=== PATIENT | male | born 1960 | race Asian ===

== ENCOUNTER 2016-11-16 16:27 | Inpatient (IN) | payer MEDICAID ==
[~2016-11-16] VITALS: Ht 175.3 cm; Wt 49.3 kg
[~2016-11-16 16:27] MED LIST: BENZ1TAB PO; RISP1TAB2 PO; SIMV20TA PO
[2016-11-16 16:45] VITALS: BP 137/84; PULSE 128; RESP 15; TEMP 101; O2SAT 100
[2016-11-16] MEDS ORDERED: SODIUM CHLOR 0.9% 1000 ML INJ 100 ML IV ONE (16:53)
[2016-11-16] MEDS ORDERED: SODIUM CHLOR 0.9% 1000 ML INJ 1,000 ML IV ONE ×2 (16:53)
[2016-11-16 17:00] VITALS: BP 137/85; PULSE 118; RESP 16; TEMP 98.7; O2SAT 100
[2016-11-16] MEDS ORDERED: VANCOMYCIN INJ 1,000 MG in SODIUM CHLOR 0.9% 250 ML INJ 250 ML IV ONE (17:00)
[2016-11-16] MEDS ORDERED: CEFEPIME INJ 2,000 MG in SODIUM CHLORIDE 0.9% INJ 100 ML IV ONE (17:00)
--- NOTE | 2016-11-16 17:26 | RADRPT ---
EXAM DATE/TIME: 11/16/2016 16:55 [facility] COMPARISON: No previous studies available for comparison. INDICATIONS : Fever. MEDICAL HISTORY : None. SURGICAL HISTORY : None. ENCOUNTER: Initial ACUITY: 1 day PAIN SCORE: Non-responsive. LOCATION: Bilateral chest FINDINGS: A single view of the chest demonstrates the lungs to be symmetrically aerated without evidence of mas s, infiltrate or effusion. The cardiomediastinal contours are unremarkable. Osseous structures are intact. CONCLUSION: No acute disease. Darrell Melo MD FACR on November 16, 2016 at 17:24 Board Certified Radiologist. This report was verified electronically.
--- NOTE | 2016-11-16 17:27 | PD ---
HPI Chief Complaint: Altered Mental Status Time Seen by Provider: 16:52 Travel History International Travel<30 days: No Contact w/Intl Traveler<30days: No Traveled to known affect area: No History of Present Illness HPI This is a 56-year-old male with a history of schizophrenia who presents to the emergency room brought in by ambulance. He was found in his home after a well check. He is not responding. His psychiatric counselor was concerned she hadn' t heard from him in several days. Unclear when he was last normal. PFSH Past Medical History Bipolar Disorder: Yes Psychiatric: Yes (PARANOID SHIZOPHRENIA) Integumentary: Yes (PSORIASIS) Social History Alcohol Use: No Tobacco Use: Yes (<1PPD) Substance Use: No Allergies-Medications (Allergen,Severity, Reaction): Coded Allergies: No Known Allergies (Unverified , 11/16/16) Reported Meds & Prescriptions Reported Meds & Active Scripts Active Reported Risperidone 1 Mg Tab 1 Mg PO Q12HR Simvastatin 20 Mg Tab 20 Mg PO DAILY Review of Systems ROS Limitations: Poor Historian Physical Exam Narrative GENERAL: Ill-appearing, cachectic with temporal wasting SKIN: Psoriatic plaques over the bilateral lower extremities and upper extremities and chest with no obvious cellulitis or wound infection HEAD: Atraumatic. Normocephalic. EYES: Pupils equal and round. No injection or drainage. ENT: Moist mucous membranes NECK: Trachea midline. CARDIOVASCULAR: Tachycardia RESPIRATORY: Clear to auscultation. Breath sounds equal bilaterally. GASTROINTESTINAL: Abdomen soft, non-tender, nondistended. MUSCULOSKELETAL: No obvious deformities. NEUROLOGICAL: Volitional he closes his eyes when we attempt to open them. Is not responding to commands so difficult to assess strength PSYCHIATRIC: Appears to have a behavioral component to his poor responsiveness Data Data Last Documented VS Vital Signs Date Time Temp Pulse Resp B/P Pulse Ox O2 Delivery O2 Flow Rate FiO2 11/16/16 18:00 98.2 116 17 138/87 98 Nasal Cannula 2 Orders Electrocardiogram (11/16/16 16:53) Complete Blood Count With Diff (11/16/16 16:53) Comprehensive Metabolic Panel (11/16/16 16:53) Act Partial Throm Time (Ptt) (11/16/16 16:53) Lactic Acid Sepsis Protocol (11/16/16 16:53) Phosphorus (Po4) (11/16/16 16:53) Troponin I (11/16/16 16:53) Urinalysis - C+S If Indicated (11/16/16 16:53) Blood Culture (11/16/16 16:53) Chest, Single Ap (11/16/16 16:53) Blood Glucose (11/16/16 16:53) Ecg Monitoring (11/16/16 16:53) Iv Access Insert/Monitor (11/16/16 16:53) Oximetry (11/16/16 16:53) Oxygen Administration (11/16/16 16:53) Urinary Catheter Insert/Apply (11/16/16 16:53) Ct Brain W/O Iv Contrast(Rout) (11/16/16 16:53) Sodium Chlor 0.9% 1000 Ml Inj (Ns 1000 M (11/16/16 16:53) Sodium Chlor 0.9% 1000 Ml Inj (Ns 1000 M (11/16/16 16:53) Sodium Chlor 0.9% 1000 Ml Inj (Ns 1000 M (11/16/16 16:53) Creatine Kinase (Cpk) (11/16/16 16:53) Drug Screen, Random Urine (11/16/16 16:53) Alcohol (Ethanol) (11/16/16 16:53) Salicylates (Aspirin) (11/16/16 16:53) Tylenol (Acetaminophen) (11/16/16 16:53) Vancomycin Inj (Vancomycin Inj) (11/16/16 17:00) Cefepime Inj (Maxipime Inj) (11/16/16 17:00) Labs Laboratory Tests Test 11/16/16 17:00 White Blood Count 8.5 TH/MM3 Red Blood Count 3.88 MIL/MM3 Hemoglobin 14.0 GM/DL Hematocrit 40.3 % Mean Corpuscular Volume 103.9 FL Mean Corpuscular Hemoglobin 36.1 PG Mean Corpuscular Hemoglobin 34.7 % Concent Red Cell Distribution Width 14.8 % Platelet Count 216 TH/MM3 Mean Platelet Volume 7.2 FL Neutrophils (%) (Auto) 77.4 % Lymphocytes (%) (Auto) 15.7 % Monocytes (%) (Auto) 5.6 % Eosinophils (%) (Auto) 0.7 % Basophils (%) (Auto) 0.6 % Neutrophils # (Auto) 6.6 TH/MM3 Lymphocytes # (Auto) 1.3 TH/MM3 Monocytes # (Auto) 0.5 TH/MM3 Eosinophils # (Auto) 0.1 TH/MM3 Basophils # (Auto) 0.1 TH/MM3 CBC Comment DIFF FINAL Differential Comment Activated Partial 30.8 SEC Thromboplast Time Urine Color YELLOW Urine Turbidity CLEAR Urine pH 5.5 Urine Specific [place] 1.006 Urine Protein NEG mg/dL Urine Glucose (UA) NEG mg/dL Urine Ketones 10 mg/dL Urine Occult Blood NEG Urine Nitrite NEG Urine Bilirubin NEG Urine Urobilinogen LESS THAN 2.0 MG/DL Urine Leukocyte Esterase NEG Urine WBC LESS THAN 1 /hpf Urine Amorphous Sediment RARE Urine Mucus FEW /lpf Microscopic Urinalysis Comment CATH-CULT NOT IND Sodium Level 132 MEQ/L Potassium Level 3.1 MEQ/L Chloride Level 99 MEQ/L Carbon Dioxide Level 21.2 MEQ/L Anion Gap 12 MEQ/L Blood Urea Nitrogen 4 MG/DL Creatinine 0.85 MG/DL Estimat Glomerular Filtration 93 ML/MIN Rate Random Glucose 133 MG/DL Lactic Acid Level 2.2 mmol/L Calcium Level 7.6 MG/DL Phosphorus Level 2.1 MG/DL Total Bilirubin 0.3 MG/DL Aspartate Amino Transf 14 U/L (AST/SGOT) Alanine Aminotransferase 13 U/L (ALT/SGPT) Alkaline Phosphatase 90 U/L Total Creatine Kinase 72 U/L Troponin I LESS THAN 0.02 NG/ML Total Protein 6.6 GM/DL Albumin 3.5 GM/DL Salicylates Level 7.7 MG/DL Urine Opiates Screen NEG Acetaminophen Level LESS THAN 2.0 MCG/ML Urine Barbiturates Screen NEG Urine Amphetamines Screen NEG Urine Benzodiazepines Screen NEG Urine Cocaine Screen NEG Urine Cannabinoids Screen NEG Ethyl Alcohol Level LESS THAN 3 MG/DL [facility] Medical Decision Making Medical Screen Exam Complete: Yes Emergency Medical Condition: Yes Interpretation(s) Afebrile, tachycardic, normotensive No leukocytosis Macrocytosis Hypokalemia Lactic acid is 2.2 Troponin is normal Drug screen is negative Salicylates are 7.7 Acetaminophen is less than 2 Alcohol is negative Last 24 hours Impressions Chest X-Ray 11/16/16 1241 Signed Impressions: Service Date/Time: Wednesday, November 16, 2016 16:55 - CONCLUSION: No acute disease. Darrell Melo MD FACR Differential Diagnosis Pneumonia, urinary tract infection, cellulitis, meningitis, encephalitis, schizophrenia Narrative Course This is a 56-year-old male who presents to the emergency department with altered mental status. He was found at home unresponsive by EMS. He appears to be volitionally closing his eyes initially and will follow any commands. He had a temperature of 101. Labs were obtained and he was placed on a monitor. He was given 2 L of IV fluid and covered empirically for sepsis given his altered mental status. He improved significantly during his ED stay and was able to wake up and answer questions and said he feels cold. I still think the patient requires admission for continued IV hydration as he appears quite dry and he may require further evaluation for his altered mental status and he doesn 't continue to improve. I would obtain a psychiatric consultation. I don't suspect meningitis or encephalitis given his mental status appears to be clearing. Diagnosis Primary Impression: Sepsis Qualified Code: A41.9 - Sepsis, due to unspecified organism Admitting Information Admitting Physician Requests: Admit Stefani Chen MD Nov 16, 2016 17:27
[2016-11-16 17:42] VITALS: BP 149/82; PULSE 104; RESP 15; TEMP 98.2; O2SAT 99
[2016-11-16 17:46] LABS: AUTOMATED NEUTROPHIL # 6.6 TH/MM3 (1.8-7.7); BASOPHIL # 0.1 TH/MM3 (0-0.2); BASOPHIL % 0.6 % (0.0-2.0); EOSINOPHIL # 0.1 TH/MM3 (0-0.4); EOSINOPHIL % 0.7 % (0.0-4.0); HEMATOCRIT 40.3 % (39.0-51.0); HEMO FLAGS DIFF FINAL; LYMPH % 15.7 % (9.0-44.0); LYMPHOCYTE # 1.3 TH/MM3 (1.0-4.8); MEAN CELL VOLUME 103.9 FL (80.0-100.0); MEAN CORPUSCULAR HEMOGLOBIN 36.1 PG (27.0-34.0); MEAN CORPUSCULAR HGB CONC 34.7 % (32.0-36.0); MONO % 5.6 % (0.0-8.0); NEUT % 77.4 % (16.0-70.0); PLATELET COUNT 216 TH/MM3 (150-450); RED BLOOD COUNT 3.88 MIL/MM3 (4.50-5.90); RED CELL DISTRIBUTION WIDTH 14.8 % (11.6-17.2); WHITE BLOOD COUNT 8.5 TH/MM3 (4.0-11.0)
[2016-11-16 17:55] LABS: APTT (PATIENT) 30.8 SEC (24.3-30.1)
[2016-11-16 18:00] VITALS: BP 138/87; PULSE 116; RESP 17; TEMP 98.2; O2SAT 98
[2016-11-16 18:05] LABS: AMPHETAMINE, URINE NEG (NEG); ANION GAP 12 MEQ/L (5-15); AST (GOT) 14 U/L (15-37); BARBITURATES, URINE NEG (NEG); BICARBONATE 21.2 MEQ/L (21.0-32.0); BLOOD UREA NITROGEN 4 MG/DL (7-18); CHLORIDE 99 MEQ/L (98-107); COCAINE, URINE NEG (NEG); GLOMERULAR FILTRATION RATE 93 ML/MIN (>89); POTASSIUM 3.1 MEQ/L (3.5-5.1); SODIUM (NA) 132 MEQ/L (136-145)
[2016-11-16 18:07] LABS: BLOOD, URINE NEG (NEG); GLUCOSE,URINE NEG (NEG); KETONE, URINE 10 mg/dL (NEG); MUCUS URINE FEW /lpf (OCC); NITRITE,URINE NEG (NEG); PH, URINE 5.5 (5.0-8.5); URINE COLOR YELLOW (YELLW/STRAW)
[2016-11-16 18:09] LABS: ACETAMINOPHEN LESS THAN 2.0 MCG/ML (10.0-30.0); ALKALINE PHOSPHATASE 90 U/L (45-117); ALT (GPT) 13 U/L (12-78); TOTAL BILIRUBIN ADULT 0.3 MG/DL (0.2-1.0)
[2016-11-16 18:16] LABS: COMMENT (UR) CATH-CULT NOT IND; CULTURE IF INDICATED CATH CULTURE NOT IND
[2016-11-16 18:28] LABS: CREATINE KINASE 72 U/L (39-308)
[2016-11-16 18:30] VITALS: BP 125/76; PULSE 112; RESP 17; O2SAT 99
--- NOTE | 2016-11-16 18:50 | RADRPT ---
EXAM DATE/TIME: 11/16/2016 18:27 [facility] COMPARISON: No previous studies available for comparison. INDICATIONS : Altered mental status. RADIATION DOSE: 26.68 CTDIvol (mGy) MEDICAL HISTORY : Schizophrenia SURGICAL HISTORY : None. ENCOUNTER: Initial ACUITY: 1 day PAIN SCALE: Non-responsive LOCATION: cranial TECHNIQUE: Multiple contiguous axial images were obtained of the head. Using automated exposure control and adj ustment of the mA and/or kV according to patient size, radiation dose was kept as low as reasonably a chievable to obtain optimal diagnostic quality images. DICOM format image data is available electro nically for review and comparison. FINDINGS: CEREBRUM: The ventricles are normal for age. No evidence of midline shift, mass lesion, hemorrhage or acute in farction. No extra-axial fluid collections are seen. POSTERIOR FOSSA: The cerebellum and brainstem are intact. The 4th ventricle is midline. The cerebellopontine angle i s unremarkable. EXTRACRANIAL: The visualized portion of the orbits is intact. SKULL: The calvaria is intact. No evidence of skull fracture. CONCLUSION: Negative noncontrast CT brain. Dawit Lopez MD on November 16, 2016 at 18:47 Board Certified Radiologist. This report was verified electronically.
[2016-11-16 19:25] LABS: LACTIC ACID GHOST NOT REPORTABLE
[2016-11-16] MEDS ORDERED: LACTULOSE SYRUP 20 GM/30 ML CUP PO PRN (19:30)
[2016-11-16] MEDS ORDERED: BISACODYL 10 MG SUPP RECTAL PRN (19:30)
[2016-11-16] MEDS ORDERED: MAGNESIUM HYDROXIDE SUSP 30 ML CUP PO PRN (19:30)
[2016-11-16] MEDS ORDERED: NALOXONE HCL 0.4 MG/ML AMP IV PRN (19:30)
[2016-11-16] MEDS ORDERED: SENNOSIDES 8.6 MG TAB PO PRN (19:30)
[2016-11-16] MEDS ORDERED: ONDANSETRON HCL 4 MG/2 ML VIAL IVP PRN (19:30)
[2016-11-16] MEDS ORDERED: SODIUM CHLORIDE 0.9% FLUSH 10 ML FLUSH IV FLUSH PRN (19:30)
--- NOTE | 2016-11-16 20:14 | HHI.HP ---
HPI Service [facility] Primary Care Physician No Primary Care Physician Admission Diagnosis sepsis Diagnoses: (1) Encephalopathy Diagnosis: Principal (2) Sepsis Diagnosis: Principal (3) Hypokalemia Diagnosis: Principal (4) Schizophrenia Diagnosis: Principal (5) Tobacco abuse Diagnosis: Principal Travel History International Travel<30 Days: No Contact w/Intl Traveler <30 Da: No Traveled to Known Affected Are: No History of Present Illness This is a 56-year-old male with PMH of Paranoid Schizophrenia, Psoriasis and Tobacco Abuse was sent to the ER by EMS secondary to AMS. Per report, Psychiatric Counselor has not heard from patient for several days and became concerned, patient found at home essentially unresponsive. Unable to obtain any history from patient. On arrival, BP 137/84, HR 128, O2 sat 100% on RA, Temp 101.0. WBC normal however elevated neutrophil count. K+ 3.1. Lactic Acid 2.2. Troponin negative. UA negative. Urine Drug Screen negative. Alcohol negative. CT Head negative. CXR with no acute findings. S/p Blood Cultures, Vanc/Cefepime in ER. Review of Systems Except as stated in HPI: all other systems reviewed are Neg ROS: Unable to obtain secondary to AMS. Past Family Social History Past Medical History PMH: Paranoid Schizophrenia, Psoriasis and Tobacco Abuse Past Surgical History PAST SURGICAL HISTORY: None Allergies: Coded Allergies: No Known Allergies (Unverified , 11/16/16) Family History PAST FAMILY HISTORY: Reviewed. No h/o DM or CAD Social History PAST SOCIAL HISTORY: Unknown history of alcohol abuse. Positive for tobacco. Negative for drugs per previous records. Physical Exam Vital Signs Vital Signs Date Time Temp Pulse Resp B/P Pulse Ox O2 Delivery O2 Flow Rate FiO2 11/16/16 18:30 112 17 125/76 99 Room Air 11/16/16 18:00 98.2 116 17 138/87 98 Nasal Cannula 2 11/16/16 17:42 98.2 104 15 149/82 99 Nasal Cannula 2 11/16/16 17:00 98.7 118 16 137/85 100 Nasal Cannula 2 11/16/16 16:45 Nasal Cannula 2 11/16/16 16:45 100 Room Air 11/16/16 16:45 101.0 128 15 137/84 100 11/16/16 16:45 Room Air Physical Exam PE: GENERAL: Middle-aged male in no acute distress. Nonverbal. Does not follow commands HEENT: PERRLA, EOMI. No scleral icterus or conjunctival pallor. No lid lag or facial droop. CARDIOVASCULAR: Regular rate and rhythm. No obvious murmurs to auscultation. No chest tenderness to palpation. RESPIRATORY: No obvious rhonchi or wheezing. Clear to auscultation. Breath sounds equal bilaterally. GASTROINTESTINAL: Abdomen soft, non-tender, nondistended. BS normal. MUSCULOSKELETAL: Extremities without clubbing, cyanosis, or edema. No obvious deformities. +psoriasis NEUROLOGICAL: Nonverbal, not following commands, ?behavioral. No focal neurologic deficits. Moving both upper and lower extremities spontaneously. Laboratory Laboratory Tests Test 11/16/16 17:00 White Blood Count 8.5 Red Blood Count 3.88 Hemoglobin 14.0 Hematocrit 40.3 Mean Corpuscular Volume 103.9 Mean Corpuscular Hemoglobin 36.1 Mean Corpuscular Hemoglobin 34.7 Concent Red Cell Distribution Width 14.8 Platelet Count 216 Mean Platelet Volume 7.2 Neutrophils (%) (Auto) 77.4 Lymphocytes (%) (Auto) 15.7 Monocytes (%) (Auto) 5.6 Eosinophils (%) (Auto) 0.7 Basophils (%) (Auto) 0.6 Neutrophils # (Auto) 6.6 Lymphocytes # (Auto) 1.3 Monocytes # (Auto) 0.5 Eosinophils # (Auto) 0.1 Basophils # (Auto) 0.1 CBC Comment DIFF FINAL Differential Comment Activated Partial 30.8 Thromboplast Time Urine Color YELLOW Urine Turbidity CLEAR Urine pH 5.5 Urine Specific [place] 1.006 Urine Protein NEG Urine Glucose (UA) NEG Urine Ketones 10 Urine Occult Blood NEG Urine Nitrite NEG Urine Bilirubin NEG Urine Urobilinogen LESS THAN 2.0 Urine Leukocyte Esterase NEG Urine WBC LESS THAN 1 Urine Amorphous Sediment RARE Urine Mucus FEW Microscopic Urinalysis Comment CATH-CULT NOT IND Sodium Level 132 Potassium Level 3.1 Chloride Level 99 Carbon Dioxide Level 21.2 Anion Gap 12 Blood Urea Nitrogen 4 Creatinine 0.85 Estimat Glomerular Filtration 93 Rate Random Glucose 133 Lactic Acid Level 2.2 Calcium Level 7.6 Phosphorus Level 2.1 Total Bilirubin 0.3 Aspartate Amino Transf 14 (AST/SGOT) Alanine Aminotransferase 13 (ALT/SGPT) Alkaline Phosphatase 90 Total Creatine Kinase 72 Troponin I LESS THAN 0.02 Total Protein 6.6 Albumin 3.5 Salicylates Level 7.7 Urine Opiates Screen NEG Acetaminophen Level LESS THAN 2.0 Urine Barbiturates Screen NEG Urine Amphetamines Screen NEG Urine Benzodiazepines Screen NEG Urine Cocaine Screen NEG Urine Cannabinoids Screen NEG Ethyl Alcohol Level LESS THAN 3 Date/Time Procedure Status Source Growth 11/16/16 17:00 Aerobic Blood Culture Received Blood Peripheral Pending 11/16/16 17:00 Anaerobic Blood Culture Received Blood Peripheral Pending Result Diagram: 11/16/16 1700 11/16/16 1700 Assessment and Plan Problem List: (1) Encephalopathy ICD Code: G93.40 Status: Acute (2) Sepsis ICD Code: A41.9 Status: Acute (3) Hypokalemia ICD Code: E87.6 Status: Acute (4) Schizophrenia ICD Code: F20.9 Status: Acute (5) Tobacco abuse ICD Code: Z72.0 Status: Acute Assessment and Plan A/P: 1. Encephalopathy: Unclear etiology-sepsis, psychiatric component. No h/o Alcohol Abuse per records, however MCV elevated, alcohol negative ?withdrawal. Start on CIWA empirically. CT Head w/ no acute findings, images reviewed by me. Neuro checks q4h. 2. Sepsis: Temp 101.0, HR 128, Lactic Acid 2.2, repeat 1.5. Source-unclear. CXR w/ no acute findings, images reviewed by me. U/a negative. S/p Blood Cultures, Vanc/Cefepime. Follow up cultures, continue IV Abx, IVF for hydration. +psoriatic plaques but no evidence of infection. 3. Hypokalemia: K+ 3.1, will recheck and replace as needed. 4. Schizophrenia: home medications unknown, previously on Risperidone 1mg q12h. Consult Psych as needed. 5. Tobacco Abuse: Ativan/NicoDerm prn if needed. 6. Social work for d/c planning as needed. 7. Case discussed w/ ER physician at length. Physician Certification 2 Midnight Certification Type: Admission for Inpatient Services Order for Inpatient Services The services are ordered in accordance with Medicare regulations or non- Medicare payer requirements, as applicable. In the case of services not specified as inpatient-only, they are appropriately provided as inpatient services in accordance with the 2-midnight benchmark. Estimated LOS (days): 2 days is the estimated time the patient will need to remain in the hospital, assuming treatment plan goals are met and no additional complications. Post-Hospital Plan: Not yet determined Problem Qualifiers (1) Sepsis: Qualified Code: A41.9 - Sepsis, due to unspecified organism Lisandra Rodriguez MD Nov 16, 2016 20:14
[2016-11-16] MEDS ORDERED: FLUMAZENIL 0.5 MG/5 ML VIAL IV PUSH PRN (20:15)
[2016-11-16] MEDS ORDERED: LORazepam 2 MG TAB PO PRN (20:15)
[2016-11-16] MEDS ORDERED: LORazepam 2 MG/ML VIAL IV PUSH PRN ×4 (20:15)
[2016-11-16] MEDS ORDERED: Vancomycin Consult Pharmacy 1 EA OTHER SCH (20:15)
[2016-11-16] MEDS ORDERED: HALOPERIDOL LACTATE 5 MG/ML AMP IM PRN (20:15)
[2016-11-16] MEDS ORDERED: LORazepam 1 MG TAB PO PRN (20:15)
[2016-11-16] MEDS: SODIUM CHLOR 0.9% 1000 ML INJ 1,000 ML IV SCH (20:23)
[2016-11-16] MEDS: SODIUM CHLORIDE 0.9% FLUSH 10 ML FLUSH IV FLUSH SCH (20:23)
[2016-11-16] MEDS: DOCUSATE SODIUM 50 MG/SENNA 8.6 MG TAB PO SCH (21:00)
[2016-11-16 21:30] VITALS: BP 139/82; PULSE 113; RESP 17; TEMP 97.8; O2SAT 98
[2016-11-17] VITALS: BP 124/80; PULSE 100; RESP 17; TEMP 97.2; O2SAT 98
[2016-11-17] MEDS: SODIUM CHLOR 0.9% 1000 ML INJ 1,000 ML IV SCH ×2 (05:42→18:11)
[2016-11-17] MEDS: VANCOMYCIN 1,000 MG/NS 250 ML IV SCH ×4 (05:42→18:12)
[2016-11-17 06:18] LABS: AUTOMATED NEUTROPHIL # 5.4 TH/MM3 (1.8-7.7); BASOPHIL # 0.1 TH/MM3 (0-0.2); BASOPHIL % 0.7 % (0.0-2.0); EOSINOPHIL # 0.1 TH/MM3 (0-0.4); EOSINOPHIL % 1.6 % (0.0-4.0); HEMATOCRIT 39.4 % (39.0-51.0); HEMO FLAGS DIFF FINAL; LYMPHOCYTE # 1.7 TH/MM3 (1.0-4.8); MEAN CELL VOLUME 104.2 FL (80.0-100.0); MEAN CORPUSCULAR HEMOGLOBIN 36.8 PG (27.0-34.0); MEAN CORPUSCULAR HGB CONC 35.3 % (32.0-36.0); MONO % 6.8 % (0.0-8.0); NEUT % 68.9 % (16.0-70.0); PLATELET COUNT 227 TH/MM3 (150-450); RED BLOOD COUNT 3.78 MIL/MM3 (4.50-5.90); RED CELL DISTRIBUTION WIDTH 15.3 % (11.6-17.2); WHITE BLOOD COUNT 7.8 TH/MM3 (4.0-11.0)
[2016-11-17 07:16] LABS: BICARBONATE 21.1 MEQ/L (21.0-32.0); POTASSIUM 3.6 MEQ/L (3.5-5.1)
[2016-11-17 08:00] VITALS: BP 125/73; PULSE 105; RESP 17; TEMP 98.6; O2SAT 96
[2016-11-17] MEDS: FOLIC ACID 1 MG TAB PO SCH (09:00)
--- NOTE | 2016-11-17 09:26 | HHI.PR ---
Subjective Remarks This is a 56-year-old male with PMH of Paranoid Schizophrenia, Psoriasis and Tobacco Abuse was sent to the ER by EMS secondary to AMS. Per report, Psychiatric Counselor has not heard from patient for several days and became concerned, patient found at home essentially unresponsive. Unable to obtain any history from patient. On arrival, BP 137/84, HR 128, O2 sat 100% on RA, Temp 101.0. WBC normal however elevated neutrophil count. K+ 3.1. Lactic Acid 2.2. Troponin negative. UA negative. Urine Drug Screen negative. Alcohol negative. CT Head negative. CXR with no acute findings. S/p Blood Cultures, Vanc/Cefepime in ER. 8-4 A.m. labs Discussed with RN and patient Replace potassium Objective Vitals Vital Signs Date Time Temp Pulse Resp B/P Pulse Ox O2 Delivery O2 Flow Rate FiO2 11/17/16 08:00 98.6 105 17 125/73 96 11/17/16 00:00 97.2 100 17 124/80 98 11/16/16 21:30 97.8 113 17 139/82 98 11/16/16 18:30 112 17 125/76 99 Room Air 11/16/16 18:00 98.2 116 17 138/87 98 Nasal Cannula 2 11/16/16 17:42 98.2 104 15 149/82 99 Nasal Cannula 2 11/16/16 17:00 98.7 118 16 137/85 100 Nasal Cannula 2 11/16/16 16:45 Nasal Cannula 2 11/16/16 16:45 100 Room Air 11/16/16 16:45 101.0 128 15 137/84 100 11/16/16 16:45 Room Air I/O 11/16/16 11/16/16 11/16/16 11/17/16 11/17/16 11/17/16 07:00 15:00 23:00 07:00 15:00 23:00 Intake Total 240 ml 1160 ml Output Total 3700 ml 1300 ml Balance -3460 ml -140 ml Intake Oral 240 ml 240 ml IV Total 920 ml Output Urine Total 3700 ml 1300 ml # Voids 0 Result Diagram: 11/17/16 0527 11/17/16 0527 Other Results Last Impressions Head CT 11/16/16 1653 Signed Impressions: Service Date/Time: Wednesday, November 16, 2016 18:27 - CONCLUSION: Negative noncontrast CT brain. Dawit Lopez MD Chest X-Ray 11/16/161652 Signed Impressions: Service Date/Time: Wednesday, November 16, 2016 16:55 - CONCLUSION: No acute disease. Darrell Melo MD FACR Laboratory Tests Test 11/16/16 11/17/16 17:00 05:27 Red Blood Count 3.88 MIL/MM3 3.78 MIL/MM3 (4.50-5.90) (4.50-5.90) Mean Corpuscular Volume 103.9 FL 104.2 FL (80.0-100.0) (80.0-100.0) Mean Corpuscular Hemoglobin 36.1 PG 36.8 PG (27.0-34.0) (27.0-34.0) Neutrophils (%) (Auto) 77.4 % (16.0-70.0) Activated Partial 30.8 SEC Thromboplast Time (24.3-30.1) Urine Ketones 10 mg/dL (NEG) Urine Mucus FEW /lpf (OCC) Sodium Level 132 MEQ/L (136-145) Potassium Level 3.1 MEQ/L (3.5-5.1) Blood Urea Nitrogen 4 MG/DL (7-18) 4 MG/DL (7-18) Random Glucose 133 MG/DL 71 MG/DL (74-106) (74-106) Lactic Acid Level 2.2 mmol/L (0.4-2.0) Calcium Level 7.6 MG/DL 7.9 MG/DL (8.5-10.1) (8.5-10.1) Phosphorus Level 2.1 MG/DL (2.5-4.9) Aspartate Amino Transf 14 U/L (15-37) (AST/SGOT) Troponin I LESS THAN 0.02 NG/ML (0.02-0.05) Acetaminophen Level LESS THAN 2.0 MCG/ML (10.0-30.0) Chloride Level 112 MEQ/L (98-107) Imaging Last [address] 11/16/161652 Signed Impressions: Service Date/Time: Wednesday, November 16, 2016 18:27 - CONCLUSION: Negative noncontrast CT brain. Dawit Lopez MD Chest X-Ray 11/16/16 1366 Signed Impressions: Service Date/Time: Wednesday, November 16, 2016 16:55 - CONCLUSION: No acute disease. Darrell Melo MD FACR Objective Remarks GENERAL: Awake alert and oriented to person not place or location or situation SKIN: Warm and dry. Multiple areas of bruising on bilateral knees HEAD: Atraumatic. Normocephalic. EYES: Pupils equal and round. No scleral icterus. No injection or drainage. Extraocular muscles grossly intact ENT: No nasal bleeding or discharge. Mucous membranes pink and moist. Tongue is midline NECK: Trachea midline. No JVD. CARDIOVASCULAR: Regular rate and rhythm. S1-S2 no S3 or S4 no heave or thrill or rub or gallop. RESPIRATORY: No accessory muscle use. Clear to auscultation. Breath sounds equal bilaterally. No rhonchi wheezes or rales GASTROINTESTINAL: Abdomen soft, non-tender, nondistended. Hepatic and splenic margins not palpable. MUSCULOSKELETAL: Extremities without clubbing, cyanosis, or edema. No obvious deformities. Good pedal pulses bilaterally deep tendon reflexes 2/4 in upper extremity and lower extremity bilaterally NEUROLOGICAL: Awake and alert. No obvious cranial nerve deficits. Motor grossly within normal limits. Five out of 5 muscle strength in the arms and legs. Normal speech. PSYCHIATRIC: INAppropriate mood and affect; insight and judgment ABnormal. Medications and IVs Current Medications Medications (Trade) Dose Ordered Sig/Nato Route Start Time Stop Time Status Last Admin (NS 1000 ml Inj) 1,000 ml @ 100 mls/hr Q10H IV 11/16/16 20:00 11/17/16 05:42 (NS Flush) 2 ml UNSCH PRN IV FLUSH 11/16/16 19:30 (NS Flush) 2 ml BID IV FLUSH 11/16/16 21:00 11/16/16 20:23 (Zofran Inj) 4 mg Q6H PRN IVP 11/16/16 19:30 (Narcan Inj) 0.4 mg UNSCH PRN IV 11/16/16 19:30 (Li-Colace) 1 tab BID PO 11/16/16 21:00 (Milk Of Magnesia Liq) 30 ml Q12H PRN PO 11/16/16 19:30 (Senokot) 17.2 mg Q12H PRN PO 11/16/16 19:30 (Dulcolax Supp) 10 mg DAILY PRN RECTAL 11/16/16 19:30 Lactulose 30 ml 30 ml DAILY PRN PO 11/16/16 19:30 Pharmacy Profile Note 0 ml @ 0 mls/hr UNSCH OTHER 11/16/16 20:15 (Maxipime Inj/NS Inj) 100 ml @ 200 mls/hr Q12H IV 11/17/16 09:00 (Folate) 1 mg DAILY PO 11/17/16 09:00 11/22/16 08:59 (Vitamin B1) 100 mg DAILY PO 11/17/16 09:00 (Theragran M Tab) 1 tab DAILY PO 11/17/16 09:00 11/22/16 08:59 (Romazicon Inj) 0.2 mg Q1M PRN IV PUSH 11/16/16 20:15 (Ativan) 1 mg Q4H PRN PO 11/16/16 20:15 (Ativan Inj) 1 mg Q4H PRN IV PUSH 11/16/16 20:15 (Ativan) 2 mg Q2H PRN PO 11/16/16 20:15 (Ativan Inj) 2 mg Q2H PRN IV PUSH 11/16/16 20:15 (Ativan Inj) 2 mg Q1H PRN IV PUSH 11/16/16 20:15 (Ativan Inj) 2 mg Q15M PRN IV PUSH 11/16/16 20:15 Haloperidol Lactate 2 mg 2 mg Q15M PRN IM 11/16/16 20:15 (Vancomycin Inj/ NS 250 ml Inj) 250 ml @ 250 mls/hr Q12H IV 11/17/16 05:00 11/17/16 05:42 Miscellaneous Information SPECIFIC LAB TO BE DEMETRIO... ONCE ONCE .XX 11/18/16 16:45 11/18/16 16:46 Urinary Catheter: No Vascular Central Line Catheter: No A/P Problem List: (1) Encephalopathy ICD Code: G93.40 Status: Acute (2) Sepsis ICD Code: A41.9 Status: Acute (3) Hypokalemia ICD Code: E87.6 Status: Acute (4) Schizophrenia ICD Code: F20.9 Status: Acute (5) Tobacco abuse ICD Code: Z72.0 Status: Acute Assessment and Plan 1. Encephalopathy: Unclear etiology-sepsis, psychiatric component. No h/o Alcohol Abuse per records, however MCV elevated, alcohol negative ?withdrawal. Start on CIWA empirically. CT Head w/ no acute findings, images reviewed by me. Neuro checks q4h. 2. Sepsis: Temp 101.0, HR 128, Lactic Acid 2.2, repeat 1.5. Source-unclear. CXR w/ no acute findings, images reviewed by me. U/a negative. S/p Blood Cultures, Vanc/Cefepime. Follow up cultures, continue IV Abx, IVF for hydration. +psoriatic plaques but no evidence of infection. 3. Hypokalemia: K+ 3.1, will recheck and replace as needed. 4. Schizophrenia: home medications unknown, previously on Risperidone 1mg q12h. Consult Psych as needed. 5. Tobacco Abuse: Ativan/NicoDerm prn if needed. Discharge Planning Needs physical therapy and occupational therapy and case management consult DVT and GI prophylaxis Problem Qualifiers (1) Sepsis: Qualified Code: A41.9 - Sepsis, due to unspecified organism Darrell Park DO Nov 17, 2016 09:26
[2016-11-17] MEDS: NICOTINE 21 MG/24 HR PATCH T-DERMAL SCH (09:30)
[2016-11-17 11:07] LABS: HDL CHOLESTEROL 45.5 MG/DL (40.0-60.0)
[2016-11-17] MEDS: MULTIVITAMINS/MINERALS THERAPEUTIC TAB PO SCH (11:15)
[2016-11-17] MEDS: DOCUSATE SODIUM 50 MG/SENNA 8.6 MG TAB PO SCH ×2 (11:15→21:26)
[2016-11-17] MEDS: CEFEPIME INJ 1,000 MG in SODIUM CHLORIDE 0.9% INJ 100 ML IV SCH ×2 (11:16→21:26)
[2016-11-17] MEDS: THIAMINE HCL 100 MG TAB PO SCH (11:16)
[2016-11-17] MEDS: SODIUM CHLORIDE 0.9% FLUSH 10 ML FLUSH IV FLUSH SCH ×2 (11:17→21:26)
[2016-11-17] MEDS: ENOXAPARIN SODIUM 30 MG/0.3 ML SYRINGE SQ SCH (11:17)
[2016-11-17 12:00] VITALS: BP 119/79; PULSE 107; RESP 18; TEMP 98.8; O2SAT 97
--- NOTE | 2016-11-17 13:17 | EKG ---
Date Performed: 11/16/2016 Time Performed: 18:16:40 PTAGE: 56 years EKG: SINUS TACHYCARDIA ABNORMAL RHYTHM ECG PREVIOUS TRACING : 07/22/2011 09.10 Since previous tracing, no significant change noted DOCTOR: Kiet Nguyễn Interpretating Date/Time 11/17/2016 13:17:24
--- NOTE | 2016-11-17 13:51 | PD.PSY.CON ---
Provisional Diagnosis Admission Date Nov 16, 2016 at 19:07 [place] I. 1. Schizophrenia, undifferentiated type, concern for acute exacerbation [place] II. Deferred History of Present Illness Service Psychiatry Consult Requested By Dr. Park Reason for Consult Altered level of consciousness Primary Care Physician No Primary Care Physician HPI Mr. Tomlinson is a 56-year-old [facility] male with a history of schizophrenia who was brought into the ED by EMS after he was found unresponsive at home. Patient was somewhat febrile and tachycardic on initial presentation here. Workup so far has been negative except for mildly elevated lactic acid, now within normal limits. Reviewing the electronic medical record I see no prior psychiatric contact within our system. Patient seen and examined. Chart reviewed. Case discussed with nursing staff reports that the patient has been quiet and somewhat lethargic. No behavioral problem. On my examination today, the patient presents as fairly negativistic. He seems to have prominent negative symptoms including affective flattening and apathy. He denies any suicidal or homicidal ideation. Denies any audiovisual hallucinations. Denies low mood or elevated mood, nor can I elicit any depressive or hypomanic/manic symptoms. He says that he sleeps fairly well and his appetite is fair. Remainder of the psychiatric ROS is negative. Past psychiatric history: The patient has a history of schizophrenia. He follows at [facility] with Chemo oDnohue. He also has a lead case manager there named Iraida. He denies any history of psychiatric admissions or suicide attempts. He reports adherence with psychotropic medications. I did place a call over to [facility]. The patient apparently follows at their [place] office. He is prescribed Risperdal 3 mg twice daily and Cogentin 1 mg twice daily for side effect management. He has an appointment with his outpatient psychiatric provider on Saturday. I did leave a voicemail for his lead case manager to try to get an update on his behavior in the outpatient setting. Family history: The patient denies any family history of mental illness. Chemical dependency history: Patient denies any abuse of drugs or alcohol. Social history: The patient says that he lives by himself but later says that he is with 4 children. He didn't graduate high school. He works doing [employer]. Review of Systems ROS Limitations: Poor Historian Except as stated in HPI: all other systems reviewed are Neg Past Family Social History Coded Allergies: No Known Allergies (Unverified , 8/4/17) Past Medical History See electronic medical record. Reported Medications Risperidone 1 Mg Tab1 Mg PO Q12HR #60 TAB Ref 0 07/24/16 Simvastatin 20 Mg Tab20 Mg PO DAILY #90 TAB Ref 0 07/24/16 Current Medications Medications (Trade) Dose Ordered Sig/Nato Route Start Time Stop Time Status Last Admin (NS 1000 ml Inj) 1,000 ml @ 100 mls/hr Q10H IV 11/16/16 20:00 11/17/16 05:42 (NS Flush) 2 ml UNSCH PRN IV FLUSH 11/16/16 19:30 (NS Flush) 2 ml BID IV FLUSH 11/16/16 21:00 11/17/16 11:17 (Zofran Inj) 4 mg Q6H PRN IVP 11/16/16 19:30 (Narcan Inj) 0.4 mg UNSCH PRN IV 11/16/16 19:30 (Li-Colace) 1 tab BID PO 11/16/16 21:00 11/17/16 11:15 (Milk Of Magnesia Liq) 30 ml Q12H PRN PO 11/16/16 19:30 (Senokot) 17.2 mg Q12H PRN PO 11/16/16 19:30 (Dulcolax Supp) 10 mg DAILY PRN RECTAL 11/16/16 19:30 Lactulose 30 ml 30 ml DAILY PRN PO 11/16/16 19:30 Pharmacy Profile Note 0 ml @ 0 mls/hr UNSCH OTHER 11/16/16 20:15 (Maxipime Inj/NS Inj) 100 ml @ 200 mls/hr Q12H IV 11/17/16 09:00 11/17/16 11:16 (Folate) 1 mg DAILY PO 11/17/16 09:00 11/22/16 08:59 (Vitamin B1) 100 mg DAILY PO 11/17/16 09:00 11/17/16 11:16 (Theragran M Tab) 1 tab DAILY PO 11/17/16 09:00 11/22/16 08:59 11/17/16 11:15 (Romazicon Inj) 0.2 mg Q1M PRN IV PUSH 11/16/16 20:15 (Ativan) 1 mg Q4H PRN PO 11/16/16 20:15 (Ativan Inj) 1 mg Q4H PRN IV PUSH 11/16/16 20:15 (Ativan) 2 mg Q2H PRN PO 11/16/16 20:15 (Ativan Inj) 2 mg Q2H PRN IV PUSH 11/16/16 20:15 (Ativan Inj) 2 mg Q1H PRN IV PUSH 11/16/16 20:15 (Ativan Inj) 2 mg Q15M PRN IV PUSH 11/16/16 20:15 Haloperidol Lactate 2 mg 2 mg Q15M PRN IM 11/16/16 20:15 (Vancomycin Inj/ NS 250 ml Inj) 250 ml @ 250 mls/hr Q12H IV 11/17/16 05:00 11/17/16 05:42 Miscellaneous Information SPECIFIC LAB TO BE DEMETRIO... ONCE ONCE .XX 11/18/16 16:45 11/18/16 16:46 (Habitrol 21 Mg Patch.24 Hr) 1 patch DAILY T-DERMAL 11/17/16 09:30 Miscellaneous Information 1 DAILY T-DERMAL 11/18/16 09:00 (Lovenox Inj) 30 mg Q24H SQ 11/17/16 10:00 11/17/16 11:17 (risperDAL) 1 mg Q12HR PO 11/17/16 21:00 (Pravachol) 40 mg DAILY PO 11/18/16 09:00 Patient's Strengths (min. 2) In a monitored setting. Verbally fluent. Physical Exam Physical exam completed by primary team. On my examination today, the patient appears to be in no acute physical distress. No hand tremor, no dystonia, no dyskinesia appreciated. No lower extremity her upper extremity hypertonia appreciated. No" lead pipe" rigidity. No clonus at the ankle. No other motor abnormalities noted. Labs and vitals reviewed: Vital Signs Vital Signs Date Time Temp Pulse Resp B/P Pulse Ox O2 Delivery O2 Flow Rate FiO2 11/17/16 12:00 98.8 107 18 119/79 97 11/16/16 18:30 Room Air 11/16/16 18:00 2 I/O 11/16/16 11/16/16 11/17/16 08:00 16:00 00:00 Intake Total 240 ml Output Total 3700 ml Balance -3460 ml Lab Results Laboratory Tests Test 11/16/16 11/16/16 11/17/16 17:00 19:55 05:27 Activated Partial 30.8 SEC Thromboplast Time Urine Color YELLOW Urine Turbidity CLEAR Urine pH 5.5 Urine Specific [place] 1.006 Urine Protein NEG mg/dL Urine Glucose (UA) NEG mg/dL Urine Ketones 10 mg/dL Urine Occult Blood NEG Urine Nitrite NEG Urine Bilirubin NEG Urine Urobilinogen LESS THAN 2.0 MG/DL Urine Leukocyte Esterase NEG Urine WBC LESS THAN 1 /hpf Urine Amorphous Sediment RARE Urine Mucus FEW /lpf Microscopic Urinalysis Comment CATH-CULT NOT IND Phosphorus Level 2.1 MG/DL Total Bilirubin 0.3 MG/DL Aspartate Amino Transf 14 U/L (AST/SGOT) Alanine Aminotransferase 13 U/L (ALT/SGPT) Alkaline Phosphatase 90 U/L Total Creatine Kinase 72 U/L Troponin I LESS THAN 0.02 NG/ML Total Protein 6.6 GM/DL Albumin 3.5 GM/DL Salicylates Level 7.7 MG/DL Urine Opiates Screen NEG Acetaminophen Level LESS THAN 2.0 MCG/ML Urine Barbiturates Screen NEG Urine Amphetamines Screen NEG Urine Benzodiazepines Screen NEG Urine Cocaine Screen NEG Urine Cannabinoids Screen NEG Ethyl Alcohol Level LESS THAN 3 MG/DL Lactic Acid Level 1.5 mmol/L White Blood Count 7.8 TH/MM3 Red Blood Count 3.78 MIL/MM3 Hemoglobin 13.9 GM/DL Hematocrit 39.4 % Mean Corpuscular Volume 104.2 FL Mean Corpuscular Hemoglobin 36.8 PG Mean Corpuscular Hemoglobin 35.3 % Concent Red Cell Distribution Width 15.3 % Platelet Count 227 TH/MM3 Mean Platelet Volume 7.4 FL Neutrophils (%) (Auto) 68.9 % Lymphocytes (%) (Auto) 22.0 % Monocytes (%) (Auto) 6.8 % Eosinophils (%) (Auto) 1.6 % Basophils (%) (Auto) 0.7 % Neutrophils # (Auto) 5.4 TH/MM3 Lymphocytes # (Auto) 1.7 TH/MM3 Monocytes # (Auto) 0.5 TH/MM3 Eosinophils # (Auto) 0.1 TH/MM3 Basophils # (Auto) 0.1 TH/MM3 CBC Comment DIFF FINAL Differential Comment Sodium Level 143 MEQ/L Potassium Level 3.6 MEQ/L Chloride Level 112 MEQ/L Carbon Dioxide Level 21.1 MEQ/L Anion Gap 10 MEQ/L Blood Urea Nitrogen 4 MG/DL Creatinine 0.74 MG/DL Estimat Glomerular Filtration 109 ML/MIN Rate Random Glucose 71 MG/DL Calcium Level 7.9 MG/DL Triglycerides Level 80 MG/DL Cholesterol Level 172 MG/DL LDL Cholesterol 111 MG/DL HDL Cholesterol 45.5 MG/DL Cholesterol/HDL Ratio 3.78 RATIO Last Impressions Head CT 11/16/[id number] Signed Impressions: Service Date/Time: Wednesday, November 16, 2016 18:27 - CONCLUSION: Negative noncontrast CT brain. Dawit Lopez MD Chest X-Ray 11/16/[id number] Signed Impressions: Service Date/Time: Wednesday, November 16, 2016 16:55 - CONCLUSION: No acute disease. Darrell Melo MD FACR EKG reviewed. QTC within normal limits. Mental Status Examination Patient is casually attired. He is somewhat disheveled. I do note he has psoriatic plaques on his forearm. He is awake and alert and oriented to person and hospital at least. No motor abnormalities noted. Speech is somewhat slow with increased speech latency. Language and fund of knowledge seem approximately average. Patient denies issues with mood. Affect is quite flat. Thought processes slowed. No loosening of associations. No maris delusions elicited. Denies audiovisual hallucinations. Denies suicidal or homicidal ideation. Insight and judgment are unclear. Assessment & Plan Problem List: (1) Schizophrenia ICD Code: F20.9 Assessment & Plan This is a 56-year-old [place] male with psychiatric history as detailed above who is presently admitted to the medical floor after having been found unresponsive at home. Psychiatry is consulted because of the patient's altered mental status. On my examination today, the patient presents as quite flat and somewhat negativistic with prominent negative symptoms of his underlying psychotic illness. He seems to have a paucity of positive symptoms at present, although there may be some degree of thought/behavioral disorganization present. Patient was initially mildly febrile and tachycardic but CK was not elevated and there are no signs of NMS on my examination today. He is not presently catatonic. My main concern is that he is so disorganized as a consequence of his psychotic illness that he allowed himself to become severely dehydrated and subsequently developed altered mental status. For now I recommend the following: --Given concern for functional impairment as a consequence of his mental illness , I have initiated the Mendoza act and placed it on the paper chart. No need for a sitter at present unless behavior should deteriorate or unit protocol dictates. --Resume patient's home psychotropics, Risperdal 3 mg twice daily and Cogentin 1 mg twice daily. I have taken the liberty of adding these medications. If after resumption of antipsychotics, picture should become more clearly consistent with NMS (e.g. high fever, rigidity, worsening leukocytosis, etc.), would hold Risperdal immediately. Ativan as needed for anxiety. --Follow-up with patient's outpatient lead case manager to clarify patient's functional status in the community. If this has recently been quite poor, patient may require psychiatric admission for stabilization/placement. --I will ask Dr. Esparza to follow up after the weekend. Thank you very much for this consultation. Please call or page with questions. Case discussed with RN. Problem Qualifiers (1) Schizophrenia: Qualified Code: F20.3 - Undifferentiated schizophrenia Randolph Palacio MD Nov 17, 2016 13:51
[2016-11-17] MEDS ORDERED: LORazepam 2 MG/ML VIAL IV PUSH PRN (15:00)
[2016-11-17] MEDS ORDERED: LORazepam 1 MG TAB PO PRN (15:00)
[2016-11-17 16:00] VITALS: BP 117/71; PULSE 99; RESP 17; TEMP 99.7; O2SAT 97
[2016-11-17 20:00] VITALS: BP 113/70; PULSE 94; RESP 20; TEMP 99.5; O2SAT 95
[2016-11-17] MEDS ORDERED: risperiDONE 1 MG TAB PO SCH (21:00)
[2016-11-17] MEDS: BENZTROPINE MESYLATE 1 MG TAB PO SCH (21:00)
[2016-11-17] MEDS: risperiDONE 1 MG TAB PO SCH (21:26)
[2016-11-18] VITALS: BP 129/69; PULSE 104; RESP 18; TEMP 99.1; O2SAT 95
[2016-11-18] MEDS: SODIUM CHLOR 0.9% 1000 ML INJ 1,000 ML IV SCH ×4 (02:57→19:51)
[2016-11-18] MEDS: VANCOMYCIN 1,000 MG/NS 250 ML IV SCH ×4 (05:01→17:05)
[2016-11-18 08:00] VITALS: BP 125/75; PULSE 78; RESP 18; TEMP 98.3; O2SAT 98
--- NOTE | 2016-11-18 08:35 | HHI.PR ---
Subjective Remarks This is a 56-year-old male with PMH of Paranoid Schizophrenia, Psoriasis and Tobacco Abuse was sent to the ER by EMS secondary to AMS. Per report, Psychiatric Counselor has not heard from patient for several days and became concerned, patient found at home essentially unresponsive. Unable to obtain any history from patient. On arrival, BP 137/84, HR 128, O2 sat 100% on RA, Temp 101.0. WBC normal however elevated neutrophil count. K+ 3.1. Lactic Acid 2.2. Troponin negative. UA negative. Urine Drug Screen negative. Alcohol negative. CT Head negative. CXR with no acute findings. S/p Blood Cultures, Vanc/Cefepime in ER. 8-5 A.m. labs Discussed with RN and patient Replace potassium 8 patient has been seen by psychiatry. They have Mendoza acted him. Has had some borderline fevers today. Hopefully we'll have no more fevers today and hopefully can be medically cleared for inpatient psychiatry tomorrow. His psychiatric medications have been restarted by psychiatry. Continue physical therapy and occupational therapy. Have discussed with patient and RN Labs are still pending Objective Vitals Vital Signs Date Time Temp Pulse Resp B/P Pulse Ox O2 Delivery O2 Flow Rate FiO2 11/18/16 00:00 99.1 104 18 129/69 95 11/17/16 20:00 99.5 94 20 113/70 95 11/17/16 16:00 99.7 99 17 117/71 97 11/17/16 12:00 98.8 107 18 119/79 97 I/O 11/17/16 11/17/16 11/17/16 11/18/16 11/18/16 11/18/16 07:00 15:00 23:00 07:00 15:00 23:00 Intake Total 1160 ml 560 ml 320 ml 2998 ml Output Total 1300 ml 1100 ml 500 ml 1250 ml Balance -140 ml -540 ml -180 ml 1748 ml Intake Oral 240 ml 560 ml 320 ml 320 ml IV Total 920 ml 2678 ml Output Urine Total 1300 ml 1100 ml 500 ml 1250 ml # Bowel Movements 0 0 0 Result Diagram: 11/17/16 0527 11/17/16 0527 Imaging Last Impressions Head CT 11/16/16 [id number] Signed Impressions: Service Date/Time: Wednesday, November 16, 2016 18:27 - CONCLUSION: Negative noncontrast CT brain. Dawit Lopez MD Chest X-Ray 11/16/16 [id number] Signed Impressions: Service Date/Time: Wednesday, November 16, 2016 16:55 - CONCLUSION: No acute disease. Darrell Melo MD FACR Objective Remarks GENERAL: Awake alert and oriented to person and place less confusion today SKIN: Warm and dry. Multiple areas of bruising on bilateral knees has psoriasis on his knees HEAD: Atraumatic. Normocephalic. EYES: Pupils equal and round reactive to light and accommodation. No scleral icterus. No injection or drainage. Extraocular muscles grossly intact ENT: No nasal bleeding or discharge. Mucous membranes pink and moist. Tongue is midline NECK: Trachea midline. No JVD. CARDIOVASCULAR: Regular rate and rhythm. S1-S2 no S3 or S4 no heave or thrill or rub or gallop. RESPIRATORY: No accessory muscle use. Clear to auscultation. Breath sounds equal bilaterally. No rhonchi wheezes or rales GASTROINTESTINAL: Abdomen soft, non-tender, nondistended. Hepatic and splenic margins not palpable. Scaphoid MUSCULOSKELETAL: Extremities without clubbing, cyanosis, or edema. No obvious deformities. Good pedal pulses bilaterally deep tendon reflexes 2/4 in upper extremity and lower extremity bilaterally NEUROLOGICAL: Awake and alert. No obvious cranial nerve deficits. Motor grossly within normal limits. Five out of 5 muscle strength in the arms and legs. Normal speech. PSYCHIATRIC: INAppropriate mood and affect; insight and judgment ABnormal. Now back on medications improving Medications and IVs Current Medications Sodium Chloride 1,000 ml @ 1,000 mls/hr Q1H ONCE IV Last administered on 17:14; Start 11/16/16 at 16:53; Stop 11/16/16 at 17:52; Status DC Sodium Chloride 1,000 ml @ 1,000 mls/hr Q1H ONCE IV Last administered on 17:14; Start 11/16/16 at 16:53; Stop 11/16/16 at 17:52; Status DC Sodium Chloride 100 ml @ 1,000 mls/hr Q6M ONCE IV Last administered on 17:14; Start 11/16/16 at 16:53; Stop 11/16/16 at 16:58; Status DC Vancomycin HCl 1000 mg/Sodium Chloride 250 ml @ 250 mls/hr ONCE ONCE IV Last administered on 11/16/16 17:15; Start 11/16/16 at 17:00; Stop 11/16/16 at 17:59; Status DC Cefepime HCl 2000 mg/Sodium Chloride 100 ml @ 200 mls/hr ONCE ONCE IV Last administered on 11/16/16 18:12; Start 11/16/16 at 17:00; Stop 11/16/16 at 17:29; Status DC Sodium Chloride (NS 1000 ml Inj) 1,000 ml @ 100 mls/hr Q10H IV Last administered on 11/18/16 02:57; Start 11/16/16 at 20:00 Sodium Chloride (NS Flush) 2 ml UNSCH PRN IV FLUSH FLUSH AFTER USING IV ACCESS ; Start 11/16/16 at 19:30 Sodium Chloride (NS Flush) 2 ml BID IV FLUSH Last administered on 11/17/16 21: 26; Start 11/16/16 at 21:00 Ondansetron HCl (Zofran Inj) 4 mg Q6H PRN IVP NAUSEA OR VOMITING; Start at 19:30 Naloxone HCl (Narcan Inj) 0.4 mg UNSCH PRN IV SEE LABEL COMMENTS; Start at 19:30 Senna/Docusate Sodium (Li-Colace) 1 tab BID PO Last administered on 11/17/16 21:26; Start 11/16/16 at 21:00 Magnesium Hydroxide (Milk Of Magnesia Liq) 30 ml Q12H PRN PO MILD - MODERATE CONSTIPATION; Start 11/16/16 at 19:30 Sennosides (Senokot) 17.2 mg Q12H PRN PO MODERATE - SEVERE CONSTIPATION; Start 11/16/16 at 19:30 Bisacodyl (Dulcolax Supp) 10 mg DAILY PRN RECTAL SEVERE CONSITIPATION; Start at 19:30 Lactulose 30 ml 30 ml DAILY PRN PO SEVERE CONSITIPATION; Start 11/16/16 at 19:30 Pharmacy Profile Note 0 ml @ 0 mls/hr UNSCH OTHER ; Start 11/16/16 at 20:15 Cefepime HCl/ Sodium Chloride (Maxipime Inj/NS Inj) 100 ml @ 200 mls/hr Q12H IV Last administered on 11/17/16 21:26; Start 11/17/16 at 09:00 Folic Acid (Folate) 1 mg DAILY PO ; Start 11/17/16 at 09:00; Stop 11/22/16 at 08: 59 Thiamine HCl (Vitamin B1) 100 mg DAILY PO Last administered on 11/17/16 11:16; Start 11/17/16 at 09:00 Multivitamins/ Minerals Therapeutic (Theragran M Tab) 1 tab DAILY PO Last administered on 11/17/16 11:15; Start 11/17/16 at 09:00; Stop 11/22/16 at 08:59 Flumazenil (Romazicon Inj) 0.2 mg Q1M PRN IV PUSH SEE LABEL COMMENTS; Start 11/16/16 at 20:15 Lorazepam (Ativan) 1 mg Q4H PRN PO CIWA 8 - 10; Start 11/16/16 at 20:15 Lorazepam (Ativan Inj) 1 mg Q4H PRN IV PUSH CIWA 8 - 10; Start 11/16/16 at 20:15 Lorazepam (Ativan) 2 mg Q2H PRN PO CIWA 11-14; Start 11/16/16 at 20:15 Lorazepam (Ativan Inj) 2 mg Q2H PRN IV PUSH CIWA 11-14; Start 11/16/16 at 20:15 Lorazepam (Ativan Inj) 2 mg Q1H PRN IV PUSH CIWA 15-20; Start 11/16/16 at 20:15 Lorazepam (Ativan Inj) 2 mg Q15M PRN IV PUSH CIWA > 20; Start 11/16/16 at 20:15 Haloperidol Lactate 2 mg 2 mg Q15M PRN IM SEE LABEL COMMENTS; Start 11/16/16 at 20:15 Vancomycin HCl/ Sodium Chloride (Vancomycin Inj/ NS 250 ml Inj) 250 ml @ 250 mls/hr Q12H IV Last administered on 11/18/16 05:01; Start 11/17/16 at 05:00 Miscellaneous Information SPECIFIC LAB TO BE DEMETRIO... ONCE ONCE .XX ; Start at 16:45; Stop 11/18/16 at 16:46 Nicotine (Habitrol 21 Mg Patch.24 Hr) 1 patch DAILY T-DERMAL ; Start 11/17/16 at 09:30 Miscellaneous Information 1 DAILY T-DERMAL ; Start 11/18/16 at 09:00 Enoxaparin Sodium (Lovenox Inj) 30 mg Q24H SQ Last administered on 11/17/16 11: 17; Start 11/17/16 at 10:00 Risperidone (risperDAL) 1 mg Q12HR PO ; Start 11/17/16 at 21:00; Stop 11/17/16 at 21:00; Status DC Pravastatin Sodium (Pravachol) 40 mg DAILY PO ; Start 11/18/16 at 09:00 Risperidone (risperDAL) 3 mg Q12HR PO Last administered on 11/17/16 21:26; Start 11/17/16 at 21:00 Benztropine Mesylate (Cogentin) 1 mg Q12HR PO Last administered on 11/17/16 21: 00; Start 11/17/16 at 21:00 Lorazepam (Ativan) 1 mg Q6H PRN PO ANXIETY; Start 11/17/16 at 15:00 Lorazepam (Ativan Inj) 1 mg Q6H PRN IV PUSH ANXIETY, unable to take PO.; Start 11/17/16 at 15:00 Urinary Catheter: No Vascular Central Line Catheter: No A/P Problem List: (1) Encephalopathy ICD Code: G93.40 Status: Acute (2) Sepsis ICD Code: A41.9 Status: Acute (3) Hypokalemia ICD Code: E87.6 Status: Acute (4) Schizophrenia ICD Code: F20.9 Status: Acute (5) Tobacco abuse ICD Code: Z72.0 Status: Acute Assessment and Plan 1. Encephalopathy: Unclear etiology-sepsis, psychiatric component. No h/o Alcohol Abuse per records, however MCV elevated, alcohol negative ?withdrawal. Start on CIWA empirically. CT Head w/ no acute findings, images reviewed by me. Neuro checks q4h. 2. Sepsis: Temp 101.0, HR 128, Lactic Acid 2.2, repeat 1.5. Source-unclear. CXR w/ no acute findings, images reviewed by me. U/a negative. S/p Blood Cultures, Vanc/Cefepime. Follow up cultures, continue IV Abx, IVF for hydration. +psoriatic plaques but no evidence of infection. --Cultures show no growth so far 3. Hypokalemia: K+ 3.1, will recheck and replace as needed. 4. Schizophrenia: home medications unknown, previously on Risperidone 1mg q12h. Consult Psych. Medications have been restarted by psychiatry. Has been seen by them. Has been Mendoza acted by them. 5. Tobacco Abuse: Ativan/NicoDerm prn if needed. A.m. labs are pending Has had borderline fevers if remains negative rest of today can hopefully be medically cleared and discharged to inpatient psychiatry tomorrow since he remained Mendoza acted Discharge Planning Needs physical therapy and occupational therapy and case management consult DVT and GI prophylaxis If no fevers in the next 24 hours discharged to inpatient psychiatry tomorrow Problem Qualifiers (1) Sepsis: Qualified Code: A41.9 - Sepsis, due to unspecified organism (2) Schizophrenia: Qualified Code: F20.3 - Undifferentiated schizophrenia Darrell Park DO Nov 18, 2016 08:35
[2016-11-18] MEDS: NICOTINE 21 MG/24 HR PATCH T-DERMAL SCH (09:00)
[2016-11-18] MEDS: REMOVE OLD PATCH T-DERMAL SCH (09:00)
[2016-11-18] MEDS: DOCUSATE SODIUM 50 MG/SENNA 8.6 MG TAB PO SCH ×2 (09:39→19:50)
[2016-11-18] MEDS: FOLIC ACID 1 MG TAB PO SCH (09:39)
[2016-11-18] MEDS: risperiDONE 1 MG TAB PO SCH ×2 (09:39→19:50)
[2016-11-18] MEDS: MULTIVITAMINS/MINERALS THERAPEUTIC TAB PO SCH (09:39)
[2016-11-18] MEDS: BENZTROPINE MESYLATE 1 MG TAB PO SCH ×2 (09:39→19:49)
[2016-11-18] MEDS: PRAVASTATIN SOD 40 MG TAB PO SCH (09:39)
[2016-11-18] MEDS: THIAMINE HCL 100 MG TAB PO SCH (09:39)
[2016-11-18] MEDS: SODIUM CHLORIDE 0.9% FLUSH 10 ML FLUSH IV FLUSH SCH ×2 (09:40→19:50)
[2016-11-18] MEDS: ENOXAPARIN SODIUM 30 MG/0.3 ML SYRINGE SQ SCH (09:40)
[2016-11-18] MEDS: CEFEPIME INJ 1,000 MG in SODIUM CHLORIDE 0.9% INJ 100 ML IV SCH ×2 (09:40→19:50)
[2016-11-18 11:57] LABS: AUTOMATED NEUTROPHIL # 5.8 TH/MM3 (1.8-7.7); BASOPHIL # 0.1 TH/MM3 (0-0.2); BASOPHIL % 0.8 % (0.0-2.0); EOSINOPHIL # 0.1 TH/MM3 (0-0.4); EOSINOPHIL % 1.7 % (0.0-4.0); HEMATOCRIT 39.6 % (39.0-51.0); HEMO FLAGS DIFF FINAL; LYMPH % 18.2 % (9.0-44.0); LYMPHOCYTE # 1.4 TH/MM3 (1.0-4.8); MEAN CORPUSCULAR HEMOGLOBIN 35.4 PG (27.0-34.0); MEAN CORPUSCULAR HGB CONC 33.4 % (32.0-36.0); MONO % 3.5 % (0.0-8.0); NEUT % 75.8 % (16.0-70.0); PLATELET COUNT 211 TH/MM3 (150-450); RED BLOOD COUNT 3.74 MIL/MM3 (4.50-5.90); RED CELL DISTRIBUTION WIDTH 15.2 % (11.6-17.2); WHITE BLOOD COUNT 7.6 TH/MM3 (4.0-11.0)
[2016-11-18 12:00] VITALS: BP 117/72; PULSE 88; RESP 20; TEMP 97.9; O2SAT 98
[2016-11-18 12:20] LABS: ANION GAP 5 MEQ/L (5-15); AST (GOT) 8 U/L (15-37); BICARBONATE 29.2 MEQ/L (21.0-32.0); BLOOD UREA NITROGEN 9 MG/DL (7-18); CHLORIDE 112 MEQ/L (98-107); GLOMERULAR FILTRATION RATE 90 ML/MIN (>89); MAGNESIUM 2.3 MG/DL (1.5-2.5); POTASSIUM 3.4 MEQ/L (3.5-5.1); SODIUM (NA) 146 MEQ/L (136-145)
[2016-11-18 12:29] LABS: ALKALINE PHOSPHATASE 76 U/L (45-117); ALT (GPT) 12 U/L (12-78); FREE T4 1.14 NG/DL (0.76-1.46); TOTAL BILIRUBIN ADULT 0.2 MG/DL (0.2-1.0)
[2016-11-18 13:24] LABS: HEMOGLOBIN A1a 1.4 %; HEMOGLOBIN A1b 0.9 %; HEMOGLOBIN Ao 83.1 %; HEMOGLOBIN F 1.6 %; HEMOGLOBIN LA1C 2.9 %
[2016-11-18 16:00] VITALS: BP 125/66; PULSE 86; RESP 17; TEMP 97.9; O2SAT 99
[2016-11-18] MEDS ORDERED: PHARMACY ORDERED LAB ONE (16:45)
[2016-11-18 20:00] VITALS: BP 136/80; PULSE 102; RESP 20; TEMP 97.6; O2SAT 100
[2016-11-19] VITALS: BP 133/70; PULSE 88; RESP 20; TEMP 98.6; O2SAT 99
[2016-11-19] MEDS: VANCOMYCIN INJ 700 MG in SODIUM CHLOR 0.9% 250 ML INJ 250 ML IV SCH ×3 (00:32→17:37)
[2016-11-19 07:29] LABS: AUTOMATED NEUTROPHIL # 4.7 TH/MM3 (1.8-7.7); BASOPHIL % 0.7 % (0.0-2.0); EOSINOPHIL # 0.2 TH/MM3 (0-0.4); EOSINOPHIL % 2.3 % (0.0-4.0); HEMATOCRIT 37.5 % (39.0-51.0); HEMO FLAGS DIFF FINAL; LYMPH % 22.4 % (9.0-44.0); LYMPHOCYTE # 1.5 TH/MM3 (1.0-4.8); MEAN CELL VOLUME 106.1 FL (80.0-100.0); MEAN CORPUSCULAR HEMOGLOBIN 35.7 PG (27.0-34.0); MEAN CORPUSCULAR HGB CONC 33.7 % (32.0-36.0); MONO % 5.3 % (0.0-8.0); NEUT % 69.3 % (16.0-70.0); PLATELET COUNT 172 TH/MM3 (150-450); RED BLOOD COUNT 3.54 MIL/MM3 (4.50-5.90); RED CELL DISTRIBUTION WIDTH 15.5 % (11.6-17.2); WHITE BLOOD COUNT 6.8 TH/MM3 (4.0-11.0)
[2016-11-19 07:48] LABS: ALT (GPT) 12 U/L (12-78); ANION GAP 9 MEQ/L (5-15); AST (GOT) 12 U/L (15-37); BICARBONATE 23.4 MEQ/L (21.0-32.0); BLOOD UREA NITROGEN 10 MG/DL (7-18); CHLORIDE 111 MEQ/L (98-107); GLOMERULAR FILTRATION RATE 137 ML/MIN (>89); MAGNESIUM 2.3 MG/DL (1.5-2.5); POTASSIUM 3.8 MEQ/L (3.5-5.1); SODIUM (NA) 143 MEQ/L (136-145)
[2016-11-19 07:49] LABS: ALKALINE PHOSPHATASE 75 U/L (45-117); TOTAL BILIRUBIN ADULT 0.2 MG/DL (0.2-1.0)
[2016-11-19 08:00] VITALS: BP 116/81; PULSE 85; RESP 20; TEMP 97.7; O2SAT 95
[2016-11-19] MEDS: REMOVE OLD PATCH T-DERMAL SCH (09:00)
[2016-11-19] MEDS: NICOTINE 21 MG/24 HR PATCH T-DERMAL SCH (09:00)
[2016-11-19] MEDS: SODIUM CHLORIDE 0.9% FLUSH 10 ML FLUSH IV FLUSH SCH ×2 (09:34→20:28)
[2016-11-19] MEDS: ENOXAPARIN SODIUM 30 MG/0.3 ML SYRINGE SQ SCH (09:37)
[2016-11-19] MEDS: CEFEPIME INJ 1,000 MG in SODIUM CHLORIDE 0.9% INJ 100 ML IV SCH ×2 (09:37→20:17)
[2016-11-19] MEDS: PRAVASTATIN SOD 40 MG TAB PO SCH (09:38)
[2016-11-19] MEDS: BENZTROPINE MESYLATE 1 MG TAB PO SCH ×2 (09:38→20:17)
[2016-11-19] MEDS: FOLIC ACID 1 MG TAB PO SCH (09:38)
[2016-11-19] MEDS: MULTIVITAMINS/MINERALS THERAPEUTIC TAB PO SCH (09:38)
[2016-11-19] MEDS: THIAMINE HCL 100 MG TAB PO SCH (09:38)
[2016-11-19] MEDS: risperiDONE 1 MG TAB PO SCH ×2 (09:38→20:18)
[2016-11-19] MEDS: DOCUSATE SODIUM 50 MG/SENNA 8.6 MG TAB PO SCH ×2 (09:44→20:17)
[2016-11-19] MEDS: SODIUM CHLOR 0.9% 1000 ML INJ 1,000 ML IV SCH ×2 (09:44→17:57)
--- NOTE | 2016-11-19 09:55 | HHI.PR ---
Subjective Remarks This is a 56-year-old male with PMH of Paranoid Schizophrenia, Psoriasis and Tobacco Abuse was sent to the ER by EMS secondary to AMS. Per report, Psychiatric Counselor has not heard from patient for several days and became concerned, patient found at home essentially unresponsive. Unable to obtain any history from patient. On arrival, BP 137/84, HR 128, O2 sat 100% on RA, Temp 101.0. WBC normal however elevated neutrophil count. K+ 3.1. Lactic Acid 2.2. Troponin negative. UA negative. Urine Drug Screen negative. Alcohol negative. CT Head negative. CXR with no acute findings. S/p Blood Cultures, Vanc/Cefepime in ER. 8-5 A.m. labs Discussed with RN and patient Replace potassium 8 patient has been seen by psychiatry. They have Mendoza acted him. Has had some borderline fevers today. Hopefully we'll have no more fevers today and hopefully can be medically cleared for inpatient psychiatry tomorrow. His psychiatric medications have been restarted by psychiatry. Continue physical therapy and occupational therapy. Have discussed with patient and RN 8 staph species grew 1 out of 2 per micro -await sensitivities and delineation of what staph species it is Continue current antibiotics with vancomycin and cefepime Discussed with patient and RN Remains under a Mendoza act at this time Objective Vitals Vital Signs Date Time Temp Pulse Resp B/P Pulse Ox O2 Delivery O2 Flow Rate FiO2 11/19/16 08:00 97.7 85 20 116/81 95 11/19/16 00:00 98.6 88 20 133/70 99 11/18/16 20:00 97.6 102 20 136/80 100 11/18/16 16:00 97.9 86 17 125/66 99 11/18/16 12:00 97.9 88 20 117/72 98 I/O 11/18/16 11/18/16 11/18/16 11/19/16 11/19/16 11/19/16 06:59 14:59 22:59 06:59 14:59 22:59 Intake Total 2998 ml 1604 ml 2368 ml 320 ml 120 ml Output Total 1250 ml 1425 ml 3050 ml 1400 ml Balance 1748 ml 179 ml -682 ml -1080 ml 120 ml Intake Oral 320 ml 715 ml 440 ml 320 ml 120 ml IV Total 2678 ml 889 ml 1928 ml Output Urine Total 1250 ml 1425 ml 3050 ml 1400 ml # Bowel Movements 0 0 0 1 Result Diagram: 11/19/16 0550 11/19/16 0550 Other Results Laboratory Tests Test 11/18/16 11/18/16 11/19/16 10:49 17:06 05:50 White Blood Count 7.6 TH/MM3 6.8 TH/MM3 Red Blood Count 3.74 MIL/MM3 3.54 MIL/MM3 Hemoglobin 13.2 GM/DL 12.6 GM/DL Hematocrit 39.6 % 37.5 % Mean Corpuscular Volume 106.0 FL 106.1 FL Mean Corpuscular Hemoglobin 35.4 PG 35.7 PG Mean Corpuscular Hemoglobin 33.4 % 33.7 % Concent Red Cell Distribution Width 15.2 % 15.5 % Platelet Count 211 TH/MM3 172 TH/MM3 Mean Platelet Volume 7.2 FL 6.8 FL Neutrophils (%) (Auto) 75.8 % 69.3 % Lymphocytes (%) (Auto) 18.2 % 22.4 % Monocytes (%) (Auto) 3.5 % 5.3 % Eosinophils (%) (Auto) 1.7 % 2.3 % Basophils (%) (Auto) 0.8 % 0.7 % Neutrophils # (Auto) 5.8 TH/MM3 4.7 TH/MM3 Lymphocytes # (Auto) 1.4 TH/MM3 1.5 TH/MM3 Monocytes # (Auto) 0.3 TH/MM3 0.4 TH/MM3 Eosinophils # (Auto) 0.1 TH/MM3 0.2 TH/MM3 Basophils # (Auto) 0.1 TH/MM3 0.0 TH/MM3 CBC Comment DIFF FINAL DIFF FINAL Differential Comment Sodium Level 146 MEQ/L 143 MEQ/L Potassium Level 3.4 MEQ/L 3.8 MEQ/L Chloride Level 112 MEQ/L 111 MEQ/L Carbon Dioxide Level 29.2 MEQ/L 23.4 MEQ/L Anion Gap 5 MEQ/L 9 MEQ/L Blood Urea Nitrogen 9 MG/DL 10 MG/DL Creatinine 0.88 MG/DL 0.61 MG/DL Estimat Glomerular Filtration 90 ML/MIN 137 ML/MIN Rate Random Glucose 163 MG/DL 96 MG/DL Hemoglobin A1c 5.5 % Calcium Level 7.9 MG/DL 8.0 MG/DL Phosphorus Level 2.5 MG/DL 3.2 MG/DL Magnesium Level 2.3 MG/DL 2.3 MG/DL Total Bilirubin 0.2 MG/DL 0.2 MG/DL Aspartate Amino Transf 8 U/L 12 U/L (AST/SGOT) Alanine Aminotransferase 12 U/L 12 U/L (ALT/SGPT) Alkaline Phosphatase 76 U/L 75 U/L Total Protein 5.9 GM/DL 5.9 GM/DL Albumin 2.8 GM/DL 2.9 GM/DL Free Thyroxine 1.14 NG/DL Thyroid Stimulating Hormone 0.719 uIU/ML 3rd Gen Vancomycin Level Trough 11.9 MCG/ML Imaging Last Impressions Head CT 11/16/161652 Signed Impressions: Service Date/Time: Wednesday, November 16, 2016 18:27 - CONCLUSION: Negative noncontrast CT brain. Dawit Lopez MD Chest X-Ray 11/16/161652 Signed Impressions: Service Date/Time: Wednesday, November 16, 2016 16:55 - CONCLUSION: No acute disease. Darrell Melo MD FACR Objective Remarks GENERAL: Awake alert and oriented to person and place less confusion today SKIN: Warm and dry. Multiple areas of bruising on bilateral knees has psoriasis on his knees HEAD: Atraumatic. Normocephalic. EYES: Pupils equal and round reactive to light and accommodation. No scleral icterus. No injection or drainage. Extraocular muscles grossly intact ENT: No nasal bleeding or discharge. Mucous membranes pink and moist. Tongue is midline NECK: Trachea midline. No JVD. CARDIOVASCULAR: Regular rate and rhythm. S1-S2 no S3 or S4 no heave or thrill or rub or gallop. RESPIRATORY: No accessory muscle use. Clear to auscultation. Breath sounds equal bilaterally. No rhonchi wheezes or rales GASTROINTESTINAL: Abdomen soft, non-tender, nondistended. Hepatic and splenic margins not palpable. Scaphoid MUSCULOSKELETAL: Extremities without clubbing, cyanosis, or edema. No obvious deformities. Good pedal pulses bilaterally deep tendon reflexes 2/4 in upper extremity and lower extremity bilaterally NEUROLOGICAL: Awake and alert. No obvious cranial nerve deficits. Motor grossly within normal limits. Five out of 5 muscle strength in the arms and legs. Normal speech. PSYCHIATRIC: INAppropriate mood and affect; insight and judgment ABnormal. Now back on medications improving Medications and IVs Current Medications Sodium Chloride 1,000 ml @ 1,000 mls/hr Q1H ONCE IV Last administered on 17:14; Start 11/16/16 at 16:53; Stop 11/16/16 at 17:52; Status DC Sodium Chloride 1,000 ml @ 1,000 mls/hr Q1H ONCE IV Last administered on 17:14; Start 11/16/16 at 16:53; Stop 11/16/16 at 17:52; Status DC Sodium Chloride 100 ml @ 1,000 mls/hr Q6M ONCE IV Last administered on 17:14; Start 11/16/16 at 16:53; Stop 11/16/16 at 16:58; Status DC Vancomycin HCl 1000 mg/Sodium Chloride 250 ml @ 250 mls/hr ONCE ONCE IV Last administered on 11/16/16 17:15; Start 11/16/16 at 17:00; Stop 11/16/16 at 17:59; Status DC Cefepime HCl 2000 mg/Sodium Chloride 100 ml @ 200 mls/hr ONCE ONCE IV Last administered on 11/16/16 18:12; Start 11/16/16 at 17:00; Stop 11/16/16 at 17:29; Status DC Sodium Chloride (NS 1000 ml Inj) 1,000 ml @ 100 mls/hr Q10H IV Last administered on 11/19/16 09:44; Start 11/16/16 at 20:00 Sodium Chloride (NS Flush) 2 ml UNSCH PRN IV FLUSH FLUSH AFTER USING IV ACCESS ; Start 11/16/16 at 19:30 Sodium Chloride (NS Flush) 2 ml BID IV FLUSH Last administered on 11/19/16 09: 34; Start 11/16/16 at 21:00 Ondansetron HCl (Zofran Inj) 4 mg Q6H PRN IVP NAUSEA OR VOMITING; Start at 19:30 Naloxone HCl (Narcan Inj) 0.4 mg UNSCH PRN IV SEE LABEL COMMENTS; Start at 19:30 Senna/Docusate Sodium (Li-Colace) 1 tab BID PO Last administered on 11/18/16 19:50; Start 11/16/16 at 21:00 Magnesium Hydroxide (Milk Of Magnesia Liq) 30 ml Q12H PRN PO MILD - MODERATE CONSTIPATION; Start 11/16/16 at 19:30 Sennosides (Senokot) 17.2 mg Q12H PRN PO MODERATE - SEVERE CONSTIPATION; Start 11/16/16 at 19:30 Bisacodyl (Dulcolax Supp) 10 mg DAILY PRN RECTAL SEVERE CONSITIPATION; Start at 19:30 Lactulose 30 ml 30 ml DAILY PRN PO SEVERE CONSITIPATION; Start 11/16/16 at 19:30 Pharmacy Profile Note 0 ml @ 0 mls/hr UNSCH OTHER ; Start 11/16/16 at 20:15 Cefepime HCl/ Sodium Chloride (Maxipime Inj/NS Inj) 100 ml @ 200 mls/hr Q12H IV Last administered on 11/19/16 09:37; Start 11/17/16 at 09:00 Folic Acid (Folate) 1 mg DAILY PO Last administered on 11/19/16 09:38; Start at 09:00; Stop 11/22/16 at 08:59 Thiamine HCl (Vitamin B1) 100 mg DAILY PO Last administered on 11/19/16 09:38; Start 11/17/16 at 09:00 Multivitamins/ Minerals Therapeutic (Theragran M Tab) 1 tab DAILY PO Last administered on 11/19/16 09:38; Start 11/17/16 at 09:00; Stop 11/22/16 at 08:59 Flumazenil (Romazicon Inj) 0.2 mg Q1M PRN IV PUSH SEE LABEL COMMENTS; Start 11/16/16 at 20:15 Lorazepam (Ativan) 1 mg Q4H PRN PO CIWA 8 - 10; Start 11/16/16 at 20:15 Lorazepam (Ativan Inj) 1 mg Q4H PRN IV PUSH CIWA 8 - 10; Start 11/16/16 at 20:15 Lorazepam (Ativan) 2 mg Q2H PRN PO CIWA 11-14; Start 11/16/16 at 20:15 Lorazepam (Ativan Inj) 2 mg Q2H PRN IV PUSH CIWA 11-14; Start 11/16/16 at 20:15 Lorazepam (Ativan Inj) 2 mg Q1H PRN IV PUSH CIWA 15-20; Start 11/16/16 at 20:15 Lorazepam (Ativan Inj) 2 mg Q15M PRN IV PUSH CIWA > 20; Start 11/16/16 at 20:15 Haloperidol Lactate 2 mg 2 mg Q15M PRN IM SEE LABEL COMMENTS; Start 11/16/16 at 20:15 Vancomycin HCl/ Sodium Chloride (Vancomycin Inj/ NS 250 ml Inj) 250 ml @ 250 mls/hr Q12H IV Last administered on 11/18/16 17:05; Start 11/17/16 at 05:00; Stop 11/18/16 at 22:12; Status DC Miscellaneous Information SPECIFIC LAB TO BE DEMETRIO... ONCE ONCE .XX Last administered on 11/18/16 16:45; Start 11/18/16 at 16:45; Stop 11/18/16 at 16:46; Status DC Nicotine (Habitrol 21 Mg Patch.24 Hr) 1 patch DAILY T-DERMAL ; Start 11/17/16 at 09:30 Miscellaneous Information 1 DAILY T-DERMAL ; Start 11/18/16 at 09:00 Enoxaparin Sodium (Lovenox Inj) 30 mg Q24H SQ Last administered on 11/19/16 09: 37; Start 11/17/16 at 10:00 Risperidone (risperDAL) 1 mg Q12HR PO ; Start 11/17/16 at 21:00; Stop 11/17/16 at 21:00; Status DC Pravastatin Sodium (Pravachol) 40 mg DAILY PO Last administered on 11/19/16 09: 38; Start 11/18/16 at 09:00 Risperidone (risperDAL) 3 mg Q12HR PO Last administered on 11/19/16 09:38; Start 11/17/16 at 21:00 Benztropine Mesylate (Cogentin) 1 mg Q12HR PO Last administered on 11/19/16 09: 38; Start 11/17/16 at 21:00 Lorazepam (Ativan) 1 mg Q6H PRN PO ANXIETY; Start 11/17/16 at 15:00 Lorazepam 1 mg 1 mg Q6H PRN IV PUSH ANXIETY, unable to take PO.; Start 11/17/16 at 15:00 Vancomycin HCl/ Sodium Chloride (Vancomycin Inj/ NS 250 ml Inj) 257 ml @ 250 mls/hr Q8H IV Last administered on 11/19/16t 00:32; Start 11/19/16 at 01:00 Miscellaneous Information SPECIFIC LAB TO BE DRAWN:VANCOMY... ONCE ONCE .XX ; Start 11/19/16 at 16:45; Stop 11/19/16 at 16:46 Urinary Catheter: No Vascular Central Line Catheter: No A/P Problem List: (1) Encephalopathy ICD Code: G93.40 Status: Acute (2) Sepsis ICD Code: A41.9 Status: Acute (3) Hypokalemia ICD Code: E87.6 Status: Acute (4) Schizophrenia ICD Code: F20.9 Status: Acute (5) Tobacco abuse ICD Code: Z72.0 Status: Acute Assessment and Plan 1. Encephalopathy: Unclear etiology-sepsis, psychiatric component. No h/o Alcohol Abuse per records, however MCV elevated, alcohol negative ?withdrawal. Start on CIWA empirically. CT Head w/ no acute findings, images reviewed by me. Neuro checks q4h. 2. Sepsis: Temp 101.0, HR 128, Lactic Acid 2.2, repeat 1.5. Source-unclear. CXR w/ no acute findings, images reviewed by me. U/a negative. S/p Blood Cultures, Vanc/Cefepime. Follow up cultures, continue IV Abx, IVF for hydration. +psoriatic plaques but no evidence of infection. --Cultures show staph species one out of 2--await sensitivities 3. Hypokalemia: K+ 3.1, will recheck and replace as needed. 4. Schizophrenia: Consult Psych. Medications have been restarted by psychiatry. Has been seen by them. Has been Mendoza acted by them. 5. Tobacco Abuse: Ativan/NicoDerm prn if needed. A.m. labs await sensitivities on the species that grew in micro--then to inpatient psychiatry once sensitivities are back since he remained Mendoza acted Discharge Planning Needs physical therapy and occupational therapy and case management consult DVT and GI prophylaxis If no fevers in the next 24 hours discharged to inpatient psychiatry tomorrow Problem Qualifiers (1) Sepsis: Qualified Code: A41.9 - Sepsis, due to unspecified organism (2) Schizophrenia: Qualified Code: F20.3 - Undifferentiated schizophrenia Darrell Park DO Nov 19, 2016 09:54
[2016-11-19 11:46] VITALS: BP 120/75; PULSE 97; RESP 20; TEMP 97.3; O2SAT 95
[2016-11-19 16:00] VITALS: BP 118/76; PULSE 90; RESP 18; TEMP 98.6; O2SAT 97
[2016-11-19] MEDS ORDERED: PHARMACY ORDERED LAB-VANCO TROUGH ONE (16:45)
[2016-11-19 20:00] VITALS: BP 116/71; PULSE 88; RESP 17; TEMP 98.8; O2SAT 98
[2016-11-20] VITALS: BP 113/78; PULSE 84; RESP 17; TEMP 98.5; O2SAT 98
[2016-11-20] MEDS: VANCOMYCIN INJ 700 MG in SODIUM CHLOR 0.9% 250 ML INJ 250 ML IV SCH ×2 (01:21→10:33)
[2016-11-20] MEDS: SODIUM CHLOR 0.9% 1000 ML INJ 1,000 ML IV SCH ×2 (04:25→09:38)
[2016-11-20 06:46] LABS: AUTOMATED NEUTROPHIL # 5.7 TH/MM3 (1.8-7.7); BASOPHIL % 0.4 % (0.0-2.0); EOSINOPHIL # 0.3 TH/MM3 (0-0.4); EOSINOPHIL % 3.4 % (0.0-4.0); HEMO FLAGS DIFF FINAL; LYMPH % 20.5 % (9.0-44.0); LYMPHOCYTE # 1.7 TH/MM3 (1.0-4.8); MEAN CELL VOLUME 104.1 FL (80.0-100.0); MEAN CORPUSCULAR HEMOGLOBIN 36.5 PG (27.0-34.0); MEAN CORPUSCULAR HGB CONC 35.1 % (32.0-36.0); NEUT % 70.7 % (16.0-70.0); PLATELET COUNT 181 TH/MM3 (150-450); RED BLOOD COUNT 3.46 MIL/MM3 (4.50-5.90); WHITE BLOOD COUNT 8.1 TH/MM3 (4.0-11.0)
[2016-11-20 07:23] LABS: ANION GAP 7 MEQ/L (5-15); AST (GOT) 16 U/L (15-37); BICARBONATE 26.8 MEQ/L (21.0-32.0); BLOOD UREA NITROGEN 8 MG/DL (7-18); CHLORIDE 111 MEQ/L (98-107); GLOMERULAR FILTRATION RATE 109 ML/MIN (>89); MAGNESIUM 2.3 MG/DL (1.5-2.5); POTASSIUM 3.9 MEQ/L (3.5-5.1); SODIUM (NA) 145 MEQ/L (136-145)
[2016-11-20 07:26] LABS: ALKALINE PHOSPHATASE 70 U/L (45-117); ALT (GPT) 14 U/L (12-78); TOTAL BILIRUBIN ADULT 0.4 MG/DL (0.2-1.0)
[2016-11-20 08:00] VITALS: BP 114/75; PULSE 90; RESP 20; TEMP 98.4; O2SAT 97
[2016-11-20] MEDS: REMOVE OLD PATCH T-DERMAL SCH (09:00)
[2016-11-20] MEDS: NICOTINE 21 MG/24 HR PATCH T-DERMAL SCH (09:00)
[2016-11-20] MEDS: ENOXAPARIN SODIUM 30 MG/0.3 ML SYRINGE SQ SCH (09:38)
[2016-11-20] MEDS: CEFEPIME INJ 1,000 MG in SODIUM CHLORIDE 0.9% INJ 100 ML IV SCH (09:38)
[2016-11-20] MEDS: SODIUM CHLORIDE 0.9% FLUSH 10 ML FLUSH IV FLUSH SCH (09:38)
[2016-11-20] MEDS: risperiDONE 1 MG TAB PO SCH (09:39)
[2016-11-20] MEDS: MULTIVITAMINS/MINERALS THERAPEUTIC TAB PO SCH (09:39)
[2016-11-20] MEDS: DOCUSATE SODIUM 50 MG/SENNA 8.6 MG TAB PO SCH (09:39)
[2016-11-20] MEDS: FOLIC ACID 1 MG TAB PO SCH (09:39)
[2016-11-20] MEDS: PRAVASTATIN SOD 40 MG TAB PO SCH (09:39)
[2016-11-20] MEDS: BENZTROPINE MESYLATE 1 MG TAB PO SCH (09:40)
[2016-11-20] MEDS: THIAMINE HCL 100 MG TAB PO SCH (09:40)
[2016-11-20 12:00] VITALS: BP 106/57; PULSE 98; RESP 18; TEMP 98.3; O2SAT 97
[2016-11-20] MEDS ORDERED: GNP100TA3 PO (12:58)
--- NOTE | 2016-11-20 14:18 | HHI.PYPN ---
Subjective Remarks On psychiatric reevaluation today patient is on his bed, calm, poorly cooperative, very disorganized, tangential, with frequent inappropriate laughing. Patient seems to be internally stimulated, but no agitation or aggressive behavior noted. Review of Systems Other No somatic complaints Objective Alert: Yes [place]: Place, Date, Situation Mood: Oppositional Affect: Flat Memory Intact: Comment (no formally assessed) Hallucinations: Other (he denies) Delusions: Yes Delusion Type: Paranoid Suicidal: Ideation (No SI ) Homicidal: Ideation (No Hi) Insight/Judgment Poor Labs Test 11/19/16 11/20/16 16:53 05:10 Vancomycin Level Trough 14.7 MCG/ML White Blood Count 8.1 TH/MM3 Red Blood Count 3.46 MIL/MM3 Hemoglobin 12.6 GM/DL Hematocrit 36.0 % Mean Corpuscular Volume 104.1 FL Mean Corpuscular Hemoglobin 36.5 PG Mean Corpuscular Hemoglobin 35.1 % Concent Red Cell Distribution Width 15.0 % Platelet Count 181 TH/MM3 Mean Platelet Volume 7.5 FL Neutrophils (%) (Auto) 70.7 % Lymphocytes (%) (Auto) 20.5 % Monocytes (%) (Auto) 5.0 % Eosinophils (%) (Auto) 3.4 % Basophils (%) (Auto) 0.4 % Neutrophils # (Auto) 5.7 TH/MM3 Lymphocytes # (Auto) 1.7 TH/MM3 Monocytes # (Auto) 0.4 TH/MM3 Eosinophils # (Auto) 0.3 TH/MM3 Basophils # (Auto) 0.0 TH/MM3 CBC Comment DIFF FINAL Differential Comment Sodium Level 145 MEQ/L Potassium Level 3.9 MEQ/L Chloride Level 111 MEQ/L Carbon Dioxide Level 26.8 MEQ/L Anion Gap 7 MEQ/L Blood Urea Nitrogen 8 MG/DL Creatinine 0.74 MG/DL Estimat Glomerular Filtration 109 ML/MIN Rate Random Glucose 81 MG/DL Calcium Level 8.2 MG/DL Phosphorus Level 3.6 MG/DL Magnesium Level 2.3 MG/DL Total Bilirubin 0.4 MG/DL Aspartate Amino Transf 16 U/L (AST/SGOT) Alanine Aminotransferase 14 U/L (ALT/SGPT) Alkaline Phosphatase 70 U/L Total Protein 5.9 GM/DL Albumin 2.9 GM/DL Date/Time Procedure Status Source Growth 11/16/16 17:00 Aerobic Blood Culture - Preliminary Resulted Blood Peripheral NO GROWTH IN 4 DAYS 11/16/16 17:00 Anaerobic Blood Culture - Preliminary Resulted Blood Peripheral NO GROWTH IN 4 DAYS Vitals/IOs Vital Signs Date Time Temp Pulse Resp B/P Pulse Ox O2 Delivery O2 Flow Rate FiO2 11/20/16 12:00 98.3 98 18 106/57 97 11/16/16 18:30 Room Air 11/16/16 18:00 2 Intake and Output 11/19/16 11/19/16 11/20/16 08:00 16:00 00:00 Intake Total 440 ml 1483 ml 240 ml Output Total 1400 ml 2400 ml 600 ml Balance -960 ml -917 ml -360 ml Assessment & Plan Problem List: (1) Schizophrenia Assessment & Plan: Patient continues to be disorganized, tangential, internally stimulated. Baseline is unknown. Collateral information is important in order to coordinate his discharge. Ronnie add Seroquel 50 mg at bedtime to help with psychosis. Transfer to psychiatric unit once medically stable. ICD Code: F20.9 Assessment & Plan Estimated LOS: days Justification for Cont. Inpt. Patient needs psychiatric hospitalization for stabilization. Problem Qualifiers (1) Schizophrenia: Qualified Code: F20.3 - Undifferentiated schizophrenia José Manuel Esparza MD Nov 20, 2016 14:18
[2016-11-20 16:49] VITALS: BP 115/73; PULSE 91; RESP 20; TEMP 97.7; O2SAT 96
[2016-11-20] MEDS ORDERED: QUEtiapine FUMARATE 25 MG TAB PO SCH (21:00)
--- NOTE | 2016-11-20 23:59 | HHI.DS ---
Discharge Summary Admission Date Nov 16, 2016 at 19:07 Discharge Date: Nov 20, 2016 Admitting Diagnosis sepsis (1) Encephalopathy ICD Code: G93.40 (2) Sepsis ICD Code: A41.9 (3) Hypokalemia ICD Code: E87.6 (4) Schizophrenia ICD Code: F20.9 (5) Tobacco abuse ICD Code: Z72.0 Brief History - From Admission This is a 56-year-old male with PMH of Paranoid Schizophrenia, Psoriasis and Tobacco Abuse was sent to the ER by EMS secondary to AMS. Per report, Psychiatric Counselor has not heard from patient for several days and became concerned, patient found at home essentially unresponsive. Unable to obtain any history from patient. On arrival, BP 137/84, HR 128, O2 sat 100% on RA, Temp 101.0. WBC normal however elevated neutrophil count. K+ 3.1. Lactic Acid 2.2. Troponin negative. UA negative. Urine Drug Screen negative. Alcohol negative. CT Head negative. CXR with no acute findings. S/p Blood Cultures, Vanc/Cefepime in ER. CBC/BMP: 11/20/16 0510 11/20/16 0510 Significant Findings Laboratory Tests Test 11/18/16 11/18/16 11/19/16 11/19/16 10:49 17:06 05:50 16:53 Red Blood Count 3.74 MIL/MM3 3.54 MIL/MM3 (4.50-5.90) (4.50-5.90) Mean Corpuscular Volume 106.0 FL 106.1 FL (80.0-100.0) (80.0-100.0) Mean Corpuscular Hemoglobin 35.4 PG 35.7 PG (27.0-34.0) (27.0-34.0) Neutrophils (%) (Auto) 75.8 % (16.0-70.0) Sodium Level 146 MEQ/L (136-145) Potassium Level 3.4 MEQ/L (3.5-5.1) Chloride Level 112 MEQ/L 111 MEQ/L (98-107) (98-107) Random Glucose 163 MG/DL (74-106) Calcium Level 7.9 MG/DL 8.0 MG/DL (8.5-10.1) (8.5-10.1) Aspartate Amino Transf 8 U/L (15-37) 12 U/L (15-37) (AST/SGOT) Total Protein 5.9 GM/DL 5.9 GM/DL (6.4-8.2) (6.4-8.2) Albumin 2.8 GM/DL 2.9 GM/DL (3.4-5.0) (3.4-5.0) Vancomycin Level Trough 11.9 MCG/ML 14.7 MCG/ML (5.0-10.0) (5.0-10.0) Hemoglobin 12.6 GM/DL (13.0-17.0) Hematocrit 37.5 % (39.0-51.0) Mean Platelet Volume 6.8 FL (7.0-11.0) Test 11/20/16 05:10 Red Blood Count 3.46 MIL/MM3 (4.50-5.90) Hemoglobin 12.6 GM/DL (13.0-17.0) Hematocrit 36.0 % (39.0-51.0) Mean Corpuscular Volume 104.1 FL (80.0-100.0) Mean Corpuscular Hemoglobin 36.5 PG (27.0-34.0) Neutrophils (%) (Auto) 70.7 % (16.0-70.0) Chloride Level 111 MEQ/L (98-107) Calcium Level 8.2 MG/DL (8.5-10.1) Total Protein 5.9 GM/DL (6.4-8.2) Albumin 2.9 GM/DL (3.4-5.0) Imaging Last Impressions Head CT 11/16/161652 Signed Impressions: Service Date/Time: Wednesday, November 16, 2016 18:27 - CONCLUSION: Negative noncontrast CT brain. Dawit Lopez MD Chest X-Ray 11/16/161652 Signed Impressions: Service Date/Time: Wednesday, November 16, 2016 16:55 - CONCLUSION: No acute disease. Darrell Melo MD FACR PE at Discharge GENERAL: Awake alert and oriented to person and place less confusion today SKIN: Warm and dry. Multiple areas of bruising on bilateral knees has psoriasis on his knees HEAD: Atraumatic. Normocephalic. EYES: Pupils equal and round reactive to light and accommodation. No scleral icterus. No injection or drainage. Extraocular muscles grossly intact ENT: No nasal bleeding or discharge. Mucous membranes pink and moist. Tongue is midline NECK: Trachea midline. No JVD. CARDIOVASCULAR: Regular rate and rhythm. S1-S2 no S3 or S4 no heave or thrill or rub or gallop. RESPIRATORY: No accessory muscle use. Clear to auscultation. Breath sounds equal bilaterally. No rhonchi wheezes or rales GASTROINTESTINAL: Abdomen soft, non-tender, nondistended. Hepatic and splenic margins not palpable. Scaphoid MUSCULOSKELETAL: Extremities without clubbing, cyanosis, or edema. No obvious deformities. Good pedal pulses bilaterally deep tendon reflexes 2/4 in upper extremity and lower extremity bilaterally NEUROLOGICAL: Awake and alert. No obvious cranial nerve deficits. Motor grossly within normal limits. Five out of 5 muscle strength in the arms and legs. Normal speech. PSYCHIATRIC: INAppropriate mood and affect; insight and judgment ABnormal. Now back on medications improving Pt update on day of discharge Patient seen this morning around 10 AM. Says he is feeling well. Denies any pain. Walking with physical therapy in [place]. Hospital Course 11/20/16 2 morphologies of coag-negative staph. Indicative of contaminant. 1. Encephalopathy: Unclear etiology-sepsis, psychiatric component. No h/o Alcohol Abuse per records, however MCV elevated, alcohol negative ?withdrawal. Start on CIWA empirically. CT Head w/ no acute findings, images reviewed by me. Neuro checks q4h. 2. Sepsis: Temp 101.0, HR 128, Lactic Acid 2.2, repeat 1.5. Source-unclear. CXR w/ no acute findings, images reviewed by me. U/a negative. S/p Blood Cultures, Vanc/Cefepime. Follow up cultures, continue IV Abx, IVF for hydration. +psoriatic plaques but no evidence of infection. --Cultures show staph species one out of 2--await sensitivities 3. Hypokalemia: K+ 3.1, will recheck and replace as needed. 4. Schizophrenia: Consult Psych. Medications have been restarted by psychiatry. Has been seen by them. Has been Mendoza acted by them. 5. Tobacco Abuse: Ativan/NicoDerm prn if needed. A.m. labs Pt Condition on Discharge: Stable Discharge Disposition: Disc to Psych Care Fac Discharge Time: > 30 minutes Discharge Instructions DIET: Follow Instructions for: As Tolerated, No Restrictions Activities you can perform: Regular-No Restrictions New Medications: Thiamine HCl (Gnp Vitamin B-1) 100 Mg Tab 100 MG PO DAILY vitamin Days 30 TAB Continued Medications: Risperidone (Risperidone) 1 Mg Tab 1 MG PO Q12HR #60 Ref 0 TAB Simvastatin (Simvastatin) 20 Mg Tab 20 MG PO DAILY Cholesterol Management #90 Ref 0 TAB Kp Skelton MD Nov 20, 2016 23:59
[2016-11-21] MEDS ORDERED: PHARMACY ORDERED LAB ONE (08:45)
== END 2016-11-20 17:26 | DRG 871 ==
LOC: NEPC 16:27 → NEDA 19:07 → N07B 21:27
PROVIDERS: ADMIT Internal Medicine; ATTEND Internal Medicine
DX: A41.9 Sepsis, unspecified organism (principal); G93.40 Encephalopathy, unspecified; R64 Cachexia; Z68.1 Body mass index [BMI] 19.9 or less, adult; E87.6 Hypokalemia; F17.210 Nicotine dependence, cigarettes, uncomplicated; F20.3 Undifferentiated schizophrenia; L40.0 Psoriasis vulgaris
CPT/HCPCS: 51702; 70450; 71010; 80048; 80053; 80061; 80202; 80307; 81001; 82140; 82550; 82607; 82948; 83036; 83605; 83735; 84100; 84439; 84443; 84484; 85025; 85730; 87040; 87205; 93005; 96361; 96365; 96374; J0692; J1650; J3370; J7030; J7050

== ENCOUNTER 2016-11-20 18:00 | Inpatient (IN) | payer MEDICAID, OTHER ==
[~2016-11-20 18:00] MED LIST changes: -BENZ1TAB PO; +GNP100TA3 PO
[2016-11-20 18:30] VITALS: BP 127/77; PULSE 104; RESP 18; TEMP 97.8; O2SAT 98
[2016-11-20] MEDS ORDERED: LORazepam 0.5 MG TAB PO PRN (19:00)
[2016-11-20] MEDS ORDERED: LORazepam 1 MG TAB PO PRN (19:00)
[2016-11-20] MEDS ORDERED: LORazepam 2 MG/ML VIAL IM PRN ×2 (19:00)
[2016-11-20] MEDS ORDERED: MAGNESIUM HYDROXIDE SUSP 30 ML CUP PO PRN (19:00)
[2016-11-20] MEDS ORDERED: ACETAMINOPHEN 325 MG TAB PO PRN (19:00)
[2016-11-20] MEDS ORDERED: ALUMINUM/MAGNESIUM/SIMETH 30 ML CUP PO PRN (19:00)
[2016-11-20] MEDS: risperiDONE 3 MG TAB PO SCH (21:00)
[2016-11-20] MEDS: BENZTROPINE MESYLATE 1 MG TAB PO SCH (21:00)
[2016-11-21 06:29] VITALS: BP 115/66; PULSE 86; RESP 18; TEMP 98.4; O2SAT 98
[2016-11-21] MEDS: REMOVE OLD PATCH T-DERMAL SCH (09:00)
[2016-11-21] MEDS: NICOTINE 21 MG/24 HR PATCH T-DERMAL SCH (09:00)
[2016-11-21 09:01] LABS: ANION GAP 6 MEQ/L (5-15); BICARBONATE 26.5 MEQ/L (21.0-32.0); BLOOD UREA NITROGEN 15 MG/DL (7-18); CHLORIDE 113 MEQ/L (98-107); GLOMERULAR FILTRATION RATE 117 ML/MIN (>89); POTASSIUM 3.9 MEQ/L (3.5-5.1); SODIUM (NA) 145 MEQ/L (136-145)
[2016-11-21 09:03] LABS: HDL CHOLESTEROL 55.5 MG/DL (40.0-60.0); LDL CHOLESTEROL 82 MG/DL (0-99)
[2016-11-21] MEDS: MULTIVITAMIN TAB PO SCH (13:30)
[2016-11-21] MEDS: CALCIPOTRIENE 0.005% TOPICAL SCH ×2 (13:30→21:00)
[2016-11-21] MEDS: MEGESTROL ACETATE SUSP 400 MG/10 ML CUP PO SCH (13:30)
--- NOTE | 2016-11-21 13:44 | PD.CONS ---
HPI Service [facility] Hospitalists Consult Requested By Dr. Beth, psychiatry Reason for Consult Medical management Primary Care Physician No Primary Care Physician Diagnoses: History of Present Illness Written by Vamshi Maddox PA-C, acting as scribe for Dr. Ca Russ on 11/21/16 at 13:44. Mr. Tomlinson is 56 yo with history of paranoid schizophrenia, psoriasis, and tobaccoism. He was brought to [facility] by EMS at home on 11/16/16 with altered mental status and essentially unresponsive. He was subsequently diagnosed with Sepsis, encephalopathy, and hypokalemia. At time of admission to the [facility] he was note able to provide significant history. At that time of ER admission findings were BP 137/84, HR 128, O2 sat 100% on RA, Temp 101.0. WBC normal however elevated neutrophil count. K+ 3.1. Lactic Acid 2.2. Troponin negative. UA negative. Urine Drug Screen negative. Alcohol negative. CT Head negative. CXR with no acute findings. S/p Blood Cultures, Vancomycin/Cefepime in ER. Psychiatry was consulted and after Mr. Tomlinson was medically cleared he was admitted to the inpatient psychiatric unit on 11/20/16. At time of consult, Mr. Tomlinson was encountered laying a bed, resting comfortably and in NAD. He would respond to questions in a limited manner, usually one to three word sentences. He denied fever, nausea, vomiting, cough, shortness of breath. He did endorse a smoking history of 1 pack per day, from a "young age." He did endorse decreased appetite but did not state why he was not eating well. No otehr issues noted, reported, or endorsed by pt. A 10 pt ROS was conducted and, except as noted above, was negative. The hospitalist team was consulted to medically manage Mr. Tomlinson's conditions. This note was transcribed by scribe Vamshi Maddox PA-C. I, Dr. Lita Russ personally performed the history, physical exam, and medical decision making; and confirmed the accuracy of the information in the transcribed note. Authenticated by Dr. Lita Russ on 11/21/16 at 13:44. Review of Systems Except as stated in HPI: all other systems reviewed are Neg Past Family Social History Allergies: Coded Allergies: No Known Allergies (Unverified , 11/16/16) Past Medical History Paranoid schizophrenia Psoriasis Tobaccoism Past Surgical History Denied Reported Medications Reported Meds & Active Scripts Active Gnp Vitamin B-1 (Thiamine HCl) 100 Mg Tab 100 Mg PO DAILY 30 Days Reported Risperidone 1 Mg Tab 1 Mg PO Q12HR Simvastatin 20 Mg Tab 20 Mg PO DAILY Active Ordered Medications Current Medications Medications (Trade) Dose Ordered Sig/Nato Route Start Time Stop Time Status Last Admin (Ativan) 1 mg Q6H PRN PO 11/20/16 19:00 (Ativan Inj) 1 mg Q6H PRN IM 11/20/16 19:00 (Tylenol) 650 mg Q4H PRN PO 11/20/16 19:00 (Milk Of Magnesia Liq) 30 ml DAILY PRN PO 11/20/16 19:00 (Mag-Al Plus Susp Liq) 30 ml Q6H PRN PO 11/20/16 19:00 (Habitrol 21 Mg Patch.24 Hr) 1 patch DAILY T-DERMAL 11/21/16 09:00 Miscellaneous Information 1 DAILY T-DERMAL 11/21/16 09:00 (risperDAL) 3 mg Q12HR PO 11/20/16 21:00 (Cogentin) 1 mg Q12HR PO 11/20/16 21:00 (Benadryl) 50 mg HS PRN PO 11/21/16 21:00 (Theragran) 1 tab DAILY PO 11/21/16 13:30 (Megace Liq) 400 mg DAILY PO 11/21/16 13:30 (Dovonex 0.005% Oint) 1 applic Q12HR TOPICAL 11/21/16 13:30 (Vitamin B1) 100 mg DAILY PO 11/22/16 09:00 (Pravachol) 40 mg DAILY PO 11/22/16 09:00 Family History Pt denied significant past medical history. He denied history of cancer and diabetes. Social History Pt reported living alone. Smokes 1ppd since age 14 Physical Exam Vital Signs Vital Signs Date Time Temp Pulse Resp B/P Pulse Ox O2 Delivery O2 Flow Rate FiO2 11/21/16 06:29 98.4 86 18 115/66 98 11/20/16 18:30 97.8 104 18 127/77 98 Physical Exam GENERAL: This is a thin, well-developed patient, in no apparent distress. pt laying abed, blankets covering him. SKIN: No ecchymoses. Cool and dry. Psoriatic plaques/lesions noted on scalp, bilateral upper and lower extremities, and abdomen. HEAD: Atraumatic. Normocephalic. Psoriasis noted on scalp. EYES: Pupils equal round and reactive. Extraocular motions intact. No scleral icterus. No injection or drainage. ENT: Nose without bleeding or purulent drainage. Airway patent. NECK: Trachea midline. No lymphadenopathy. Supple and nontender. CARDIOVASCULAR: Regular rate and rhythm without murmurs, gallops, or rubs. RESPIRATORY: Clear to auscultation. Breath sounds equal bilaterally. No wheezes , rales, or rhonchi. GASTROINTESTINAL: Abdomen soft, non-tender, nondistended. No hepato-splenomegaly , or palpable masses. No guarding. MUSCULOSKELETAL: Extremities without clubbing, cyanosis, or edema. No joint tenderness, effusion, or edema noted. No calf tenderness. Negative Homans sign bilaterally. NEUROLOGICAL: Awake and alert. Cranial nerves II through XII intact. Motor and sensory grossly within normal limits. Five out of 5 muscle strength in all muscle groups. Speech clear and fluent. Laboratory Laboratory Tests Test 11/21/16 06:55 Sodium Level 145 Potassium Level 3.9 Chloride Level 113 Carbon Dioxide Level 26.5 Anion Gap 6 Blood Urea Nitrogen 15 Creatinine 0.70 Estimat Glomerular Filtration 117 Rate Random Glucose 98 Calcium Level 8.1 Triglycerides Level 73 Cholesterol Level 152 LDL Cholesterol 82 HDL Cholesterol 55.5 Cholesterol/HDL Ratio 2.73 Result Diagram: 11/21/16 0655 Assessment and Plan Discussed Condition With Mr. Tomlinson is 56 yo with history of paranoid schizophrenia, psoriasis, and tobaccoism. He was brought to [facility] by EMS at home on 11/16/16 with altered mental status and essentially unresponsive. He was subsequently diagnosed with Sepsis, encephalopathy, and hypokalemia. At time of admission to the [facility] he was note able to provide significant history. At that time BP 137/84, HR 128, O2 sat 100 % on RA, Temp 101.0. WBC normal however elevated neutrophil count. K+ 3.1. Lactic Acid 2.2. Troponin negative. UA negative. Urine Drug Screen negative. Alcohol negative. CT Head negative. CXR with no acute findings. S/p Blood Cultures, Vancomycin/Cefepime in ER. Psychiatry was consulted and after Mr. Tomlinson was medically cleared he was admitted to the inpatient psychiatric unit on 11/20/16. Paranoid schizophrenia -Management/treatment per primary team. Psoriasis -Calcipotriene ointment Decreased appetite -Mergace Tobaccoism Nicotine patch 21 mg daily Hospitalist team will continue to follow. -Vamshi Pizano Jr. Nov 21, 2016 13:44 Lita Russ MD Nov 23, 2016 09:53
[2016-11-21] MEDS: BENZTROPINE MESYLATE 1 MG TAB PO SCH ×2 (14:00→21:00)
[2016-11-21] MEDS: risperiDONE 3 MG TAB PO SCH ×2 (14:00→21:00)
[2016-11-21 15:59] LABS: HEMOGLOBIN A1a 1.3 %; HEMOGLOBIN A1b 0.8 %; HEMOGLOBIN Ao 83.7 %; HEMOGLOBIN F 1.6 %; HEMOGLOBIN LA1C 2.5 %; HEMOGLOBIN P3 3.9 %
[2016-11-21 17:19] VITALS: BP 118/67; PULSE 83; RESP 16; TEMP 98.9; O2SAT 99
--- NOTE | 2016-11-21 19:53 | HHI.HP ---
Provisional Diagnosis Admission Date Nov 20, 2016 at 18:00 Temple I. Schizophrenia Temple II. Deferred Temple III. Recent sepsis, encephalopathy Temple IV. Chronic mental illness, limited social support Temple V. 35 Certification of Person's Competence To Provide Express and Informed Consent I have personally examined Doreen Tomlinson , a person being served at [facility] on, Nov 21, 2016 19:51. Express and informed consent means consent voluntarily given in writing, by a competent person, after sufficient explanation and disclosure of the subject matter involved to enable the person to make a knowing and willful decision without any element of force, fraud, deceit, duress, or other form of constraint or coercion. This person is 18 years of age or older, is not now known to be incompetent to consent to treatment with a guardian advocate, and does not have a health care surrogate or proxy currently making medical treatment decisions. I have found this person to be one of the following: [x] Competent to provide express and informed consent, as defined above, for voluntary admission to this facility and is competent to provide express and informed consent for treatment. He/she has the consistent capacity to make well reasoned, willful, and knowing decisions concerning his or her medical or mental health treatment. The person fully and consistently understands the purpose of the admission for examination/placement and is fully capable of personally exercising all rights assured under [place] [] Incompetent to provide express and informed consent to voluntary admission, and this is incompetent to provide express and informed consent to treatment. The person must be transferred to involuntary status and a petition for a guardian advocate filed with the Circuit Court. [] Refusing to provide express and informed consent to voluntary admission but is competent to provide express and informed consent for treatment. The person must be discharged or transferred to involuntary status. Form shall be completed within 24 hours of a person's arrival at the receiving facility and filed in the clinical record of each person: 1. Admitted on a voluntary basis 2. Permitted to provide express and informed consent to his/her own treatment 3. Allowed to transfer from involuntary to voluntary status 4. Prior to permitting a person to consent to his or her own treatment after having been previously found incompetent to consent to treatment. History of Present Illness Capacity: Has Capacity HPI Patient is a 56-year-old [place]oc[place] man, with 4 children, domiciled, employed, with past psychiatric history of schizophrenia, no prior psychiatric admissions or suicide attempts, follows up at [facility] with Chemo Donohue, nurse case management named Iraida, recently on Risperdal 3 mg twice a day and Cogentin 1 mg twice a day who was brought in by EMS on 11/16/16 for altered mental status and upon medical workup was found to be septic, encephalopathic hypokalemic which was medically managed and on during this admission a psychiatric consult was placed for altered mental status and was found to have predominantly negative symptoms and upon follow-up patient was noted to be very disorganized tangential inappropriate laughing intermittently stimulated which should was later transferred the inpatient psychiatry unit on 11/20/16 for further evaluation and treatment. Patient was seen on the inpatient unit found lying in hospital bed asleep and was superficially cooperative as patient had somewhat difficulty staying awake for interview. Patient found to be oriented to person and place only stating feeling a little better as well as mentioning that he has not eating better than before. Patient denies any mood symptoms denies any psychotic symptoms at this time. Patient is a poor historian and an unclear whether due to sedative properties of current treatments is contrary to his current state or whether it s due to current psychosis. Patient unable to recall past psychiatric or medical history at this time continues to appear confused and will require further observation and stabilization on the inpatient unit. Past psychiatric history: As per chart previous psychiatric diagnoses schizophrenia, no previous psychiatric hospitalizations, no previous suicide attempts or self-injurious behavior. Follows up at [facility] with Chemo Donohue, nurse case management named Iraida, recently on Risperdal 3 mg twice a day and Cogentin 1 mg twice a day. 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 Labs reviewed. Review of Systems ROS Limitations: Poor Historian Except as stated in HPI: all other systems reviewed are Neg Past Psych History Psychological trauma history Unable to assess Violence risk - others (6 mos) Low Violence risk - self (6 mos) Low Substance Abuse History Drugs/Alcohol past 12 months Tobacco use, denies use of any other substance. Past Family Social History Coded Allergies: No Known Allergies (Unverified , 11/16/16) Active Scripts Thiamine HCl (Gnp Vitamin B-1)100 Mg Etp067 Mg PO DAILY 30 Days Prov:Kp Skelton MD 11/20/16 Reported Medications Risperidone 1 Mg Tab1 Mg PO Q12HR #60 TAB Ref 0 07/24/16 Simvastatin 20 Mg Tab20 Mg PO DAILY #90 TAB Ref 0 07/24/16 Current Medications Medications (Trade) Dose Ordered Sig/Nato Route Start Time Stop Time Status Last Admin (Ativan) 1 mg Q6H PRN PO 11/20/16 19:00 (Ativan Inj) 1 mg Q6H PRN IM 11/20/16 19:00 (Tylenol) 650 mg Q4H PRN PO 11/20/16 19:00 (Milk Of Magnesia Liq) 30 ml DAILY PRN PO 11/20/16 19:00 (Mag-Al Plus Susp Liq) 30 ml Q6H PRN PO 11/20/16 19:00 (Habitrol 21 Mg Patch.24 Hr) 1 patch DAILY T-DERMAL 11/21/16 09:00 Miscellaneous Information 1 DAILY T-DERMAL 11/21/16 09:00 11/21/16 09:00 (risperDAL) 3 mg Q12HR PO 11/20/16 21:00 11/21/16 14:00 (Cogentin) 1 mg Q12HR PO 11/20/16 21:00 11/21/16 14:00 (Benadryl) 50 mg HS PRN PO 11/21/16 21:00 (Theragran) 1 tab DAILY PO 11/21/16 13:30 11/21/16 13:30 (Megace Liq) 400 mg DAILY PO 11/21/16 13:30 11/21/16 13:30 (Dovonex 0.005% Oint) 1 applic Q12HR TOPICAL 11/21/16 13:30 11/21/16 13:30 (Vitamin B1) 100 mg DAILY PO 11/22/16 09:00 (Pravachol) 40 mg DAILY PO 11/22/16 09:00 Family History Unable to assess Social History , with 4 children, has daughter living in [place], domiciled alone, 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 2) Verbal, communicative Physical Exam . On my examination today, the patient appears to be mal-nourished with no acute physical distress refuses to participate in physical examination at this time. No abnormal motor movements noted. Labs and vital signs reviewed. Vital Signs Vital Signs Date Time Temp Pulse Resp B/P Pulse Ox O2 Delivery O2 Flow Rate FiO2 11/21/16 17:19 98.9 83 16 118/67 99 Lab Results labs reviewed. Laboratory Tests Test 11/21/16 06:55 Chloride Level 113 MEQ/L (98-107) Calcium Level 8.1 MG/DL (8.5-10.1) Mental Status Examination Appearance Patient appears stated age, noted to be malnourished, thin habitus, and hospital [facility], poor hygiene and grooming, noted to be slightly lethargic, superficially cooperative, poor historian. Poor eye contact is patient noted to be sleepy during interview. Speech: Slow (heavy Moroccan accent) Orientation: Person, Place Memory: Impaired (describe) (unable to recall medical or psychiatric history) Thought Process: Other (concrete) Thought Content: Other (limited responses unable to assess appropriately) Language Fluent and nonspontaneous Fund of Knowledge Unable to assess Hallucination Type: None Attention and Concentration: Abnormal (patient appears lethargic and confused) Suicidal Ideation: No Previous Suicide Attempts: No Homicidal Ideation: No Previous Homicide Attempts: No Insight: Poor Judgment: WNL Affect: Other (lethargic) Mood: Other ("a little bit better") Assessment & Plan Problem List: (1) Schizophrenia ICD Code: F20.9 Assessment & Plan Estimated LOS: 5-7 days. Patient at this time appears to be confused, unable to recall personal medical or psychiatric history. Patient at this time is unable to engage appropriately in interview poor historian. Current presentation may be due to current psychotic state or sedated from medications. Patient will continue to require inpatient hospitalization for stabilization. Continue risperidone 3 mg by mouth twice a day for psychosis continue benztropine 1 mg by mouth twice a day for EPS. Monitor for medication response and adverse drug reactions. Collateral pending from daughter. Collateral pending from [facility] outpatient clinic. Medical recommendations as per primary medical team. Continue to encourage patient to increase by mouth intake and nutritional and fluids. Encouraged patient to improve a personal hygiene. Discharge planning in progress Discharge Planning In progress Mat Beth MD Nov 21, 2016 19:53
[2016-11-21] MEDS ORDERED: diphenhydrAMINE HCL 50 MG CAP PO PRN (21:00)
[2016-11-22 05:23] VITALS: BP 129/68; PULSE 103; RESP 20; TEMP 97.8; O2SAT 98
[2016-11-22] MEDS: risperiDONE 3 MG TAB PO SCH ×2 (08:41→20:45)
[2016-11-22] MEDS: PRAVASTATIN SOD 40 MG TAB PO SCH (08:41)
[2016-11-22] MEDS: BENZTROPINE MESYLATE 1 MG TAB PO SCH ×2 (08:41→20:45)
[2016-11-22] MEDS: MULTIVITAMIN TAB PO SCH (08:41)
[2016-11-22] MEDS: REMOVE OLD PATCH T-DERMAL SCH (08:41)
[2016-11-22] MEDS: MEGESTROL ACETATE SUSP 400 MG/10 ML CUP PO SCH (08:41)
[2016-11-22] MEDS: THIAMINE HCL 100 MG TAB PO SCH (08:41)
[2016-11-22] MEDS: NICOTINE 21 MG/24 HR PATCH T-DERMAL SCH (08:42)
[2016-11-22] MEDS: CALCIPOTRIENE 0.005% TOPICAL SCH ×2 (08:42→20:45)
--- NOTE | 2016-11-22 14:44 | HHI.PYPN ---
Subjective Remarks Patient seen for follow-up, chart reviewed. Patient found lying in hospital bed asleep was able to wake up superficially to engage in interview today. Patient stated he simply very sleepy, but he the feeling "alright" patient is oriented to person year and place only, reports eating drinking okay, denying any auditory or visual hallucinations. Patient denies any depressive or manic mood symptoms. Patient reports he has not yet been visited by his daughter or contacting her since having moved to this unit. Patient still unclear to the reason for his recent admission to the medical floor but has been compliant with treatment and tolerating medications well. Review of Systems Except as stated in HPI: all other systems reviewed are Neg Objective Alert: Yes [place]: Person, Date (year only) Mood: Other ("all right") Affect: Other (sleepy) Memory Intact: Comment (impaired recent memory regarding recent hospitalization.) Hallucinations: Other (denies) Delusions: No Delusion Type: Other (denies) Suicidal: Ideation (denies) Homicidal: Ideation (denies) Insight/Judgment Poor insight, fair impulse control and judgment Vitals/IOs Vital Signs Date Time Temp Pulse Resp B/P Pulse Ox O2 Delivery O2 Flow Rate FiO2 11/22/16 05:23 97.8 103 20 129/68 98 Intake and Output 11/21/16 11/21/16 11/21/16 07:59 15:59 23:59 Intake Total 240 ml Balance 240 ml Assessment & Plan Problem List: (1) Schizophrenia ICD Code: F20.9 Assessment & Plan Estimated LOS: 5-7 days. Patient at this time continues to be slightly confused as per his circumstances that brought him to the hospital. Patient denies any mood or psychotic symptoms at this time but is unable to participate fully in interview. Patient likely continued to be sedated due to current antipsychotic treatment will continue to be monitored. Collateral pending from daughter lives in [place]. Discharge planning in progress to connect patient back to outpatient provider. Patient to continue current treatment. Positive for medication response and adverse drug reactions. 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 Discharge planning in progress. Medical recommendations as per primary medical team. Justification for Cont. Inpt. Patient at risk for further decompensation if at lower level of care Discharge Planning In progress Mat Beth MD Nov 22, 2016 14:44
[2016-11-23 06:07] VITALS: BP 107/69; PULSE 85; RESP 16; TEMP 97.9; O2SAT 96
[2016-11-23] MEDS: REMOVE OLD PATCH T-DERMAL SCH (09:00)
[2016-11-23] MEDS: NICOTINE 21 MG/24 HR PATCH T-DERMAL SCH (09:00)
[2016-11-23] MEDS: risperiDONE 3 MG TAB PO SCH ×2 (09:11→20:54)
[2016-11-23] MEDS: PRAVASTATIN SOD 40 MG TAB PO SCH (09:11)
[2016-11-23] MEDS: THIAMINE HCL 100 MG TAB PO SCH (09:11)
[2016-11-23] MEDS: BENZTROPINE MESYLATE 1 MG TAB PO SCH ×2 (09:12→20:54)
[2016-11-23] MEDS: MULTIVITAMIN TAB PO SCH (09:12)
[2016-11-23] MEDS: CALCIPOTRIENE 0.005% TOPICAL SCH ×2 (09:26→20:55)
[2016-11-23] MEDS: MEGESTROL ACETATE SUSP 400 MG/10 ML CUP PO SCH (09:26)
--- NOTE | 2016-11-23 18:32 | HHI.PYPN ---
Subjective Remarks Patient seen for follow, chart reviewed. Patient noted to be more awake and alert today and was able to engage more with interview. Patient was found lying in hospital bed but was able to wake up and participate. Patient stated feeling "good" but continues to not recall circumstances which brought him into the hospital. Patient stated he stopped taking his medications 12 months ago wasn't able to clarify why. Patient aware that she needed to continue treatment and states planning on returning to outpatient follow-up and adhere to medication regimen. Patient denies any mood symptoms at this time denies feeling depressed nor having any manic or psychotic symptoms at this time. Patient denies any suicidal or homicidal ideations. Patient stated he wants to go home but has been noted to have minimal participation in groups and activities and has not had any behavioral issues while on the unit. Patient continues to have some slight confusion as to reasons he is in the hospital, alert and oriented only to person and place at this time. Review of Systems ROS Limitations: Poor Historian Except as stated in HPI: all other systems reviewed are Neg Objective Alert: Yes [place]: Person, Place Mood: Other ("all right") Affect: Other (slightly constricted was able to smile medication.) Memory Intact: Comment (impaired recent memory regarding recent hospitalization.) Hallucinations: Other (denies) Delusions: No Delusion Type: Other (denies) Suicidal: Ideation (denies) Homicidal: Ideation (denies) Insight/Judgment Impaired insight, fair impulse control and judgment Remarks Patient appears stated age, found hospital [facility], fair hygiene and grooming, fair eye contact, cooperative interview. Thought process concrete, thought content denies SI HI AVH or delusions Vitals/IOs Vital Signs Date Time Temp Pulse Resp B/P Pulse Ox O2 Delivery O2 Flow Rate FiO2 11/23/16 06:07 97.9 85 16 107/69 96 Assessment & Plan Problem List: (1) Schizophrenia ICD Code: F20.9 Assessment & Plan Patient at this time continues to be slightly confused, unable to recall circumstances which found to the hospital. Patient noted to be more awake and alert now denying any depressive manic or psychotic symptoms at this time. Patient with unclear discharge plan, states he lives alone and that he has a daughter in [place] but we have not heard from the daughter yet for collateral. Patient at this time and that should he be able disturbances. Clear and safe discharge plan continues to be formulated along with attempts to find his daughter to assist in providing social support at this time. Patient continues to be slowly diffuse unable to formulate a plan upon discharge. Patient to continue current treatment, discharge planning in progress Justification for Cont. Inpt. Patient at risk for decompensation if a lower level of care Discharge Planning In progress Mat Beth MD Nov 23, 2016 18:32
[2016-11-23 19:16] VITALS: BP 111/71; PULSE 83; RESP 16; TEMP 97; O2SAT 100
[2016-11-24 05:18] VITALS: BP 99/60; PULSE 84; RESP 16; TEMP 97.9; O2SAT 98
[2016-11-24] MEDS: NICOTINE 21 MG/24 HR PATCH T-DERMAL SCH (09:00)
[2016-11-24] MEDS: REMOVE OLD PATCH T-DERMAL SCH (09:00)
[2016-11-24] MEDS: CALCIPOTRIENE 0.005% TOPICAL SCH ×2 (09:08→21:05)
[2016-11-24] MEDS: PRAVASTATIN SOD 40 MG TAB PO SCH (09:44)
[2016-11-24] MEDS: risperiDONE 3 MG TAB PO SCH ×2 (09:44→21:05)
[2016-11-24] MEDS: THIAMINE HCL 100 MG TAB PO SCH (09:44)
[2016-11-24] MEDS: BENZTROPINE MESYLATE 1 MG TAB PO SCH ×2 (09:44→21:05)
[2016-11-24] MEDS: MULTIVITAMIN TAB PO SCH (09:45)
[2016-11-24] MEDS: MEGESTROL ACETATE SUSP 400 MG/10 ML CUP PO SCH (09:45)
--- NOTE | 2016-11-24 13:49 | HHI.PR ---
Subjective Remarks Ambulating in the room. No n/v/d/c. Says he is eating better, appetite is better. Rash is the same. No cough, fever or chills. No sob. Objective Vitals Vital Signs Date Time Temp Pulse Resp B/P Pulse Ox O2 Delivery O2 Flow Rate FiO2 11/24/16 05:18 97.9 84 16 99/60 98 11/23/16 19:16 97.0 83 16 111/71 100 Result Diagram: 11/21/16 0655 Objective Remarks GENERAL: This is a thin, well-developed patient, in no apparent distress. pt laying abed, blankets covering him. SKIN: No ecchymoses. Cool and dry. Psoriatic plaques/lesions noted on scalp, bilateral upper and lower extremities, and abdomen. HEAD: Atraumatic. Normocephalic. Psoriasis noted on scalp. CARDIOVASCULAR: Regular rate and rhythm without murmurs, gallops, or rubs. RESPIRATORY: Clear to auscultation. Breath sounds equal bilaterally. No wheezes , rales, or rhonchi. GASTROINTESTINAL: Abdomen soft, non-tender, nondistended. No hepato-splenomegaly , or palpable masses. No guarding. MUSCULOSKELETAL: Extremities without clubbing, cyanosis, or edema. No joint tenderness, effusion, or edema noted. No calf tenderness. Negative Homans sign bilaterally. NEUROLOGICAL: Awake and alert. Cranial nerves II through XII intact. Motor and sensory grossly within normal limits. Five out of 5 muscle strength in all muscle groups. Speech clear and fluent. A/P Assessment and Plan Mr. Tomlinson is 56 yo with history of paranoid schizophrenia, psoriasis, and tobaccoism. He was brought to [facility] by EMS at home on 11/16/16 with altered mental status and essentially unresponsive. He was subsequently diagnosed with Sepsis, encephalopathy, and hypokalemia. At time of admission to the [facility] he was note able to provide significant history. At that time BP 137/84, HR 128, O2 sat 100 % on RA, Temp 101.0. WBC normal however elevated neutrophil count. K+ 3.1. Lactic Acid 2.2. Troponin negative. UA negative. Urine Drug Screen negative. Alcohol negative. CT Head negative. CXR with no acute findings. S/p Blood Cultures, Vancomycin/Cefepime in ER. Psychiatry was consulted and after Mr. Tomlinson was medically cleared he was admitted to the inpatient psychiatric unit on 11/20/16. Paranoid schizophrenia -Management/treatment per primary team. Psoriasis -Calcipotriene ointment. Discusse diwth the patient to follow up as OP with his PCP and also with dermatology. Decreased appetite -MVT. Mergace. Improved after megace started Tobaccoism Nicotine patch 21 mg daily -Thiamine Discussed with the patient, nurse Appears stable at this time. The hospitalist will sign off. Reconsult as need. Lita Russ MD Nov 24, 2016 13:49
[2016-11-24 18:28] VITALS: BP 110/71; PULSE 92; RESP 17; TEMP 97.1; O2SAT 98
--- NOTE | 2016-11-24 22:10 | HHI.PYPN ---
Subjective Remarks Pt seen and discussed with staff. Pt has been compliant with medications and denies side effects. He has been a little less reclusive today. He continues to c/o of AH. Appetite is improving. No SI/HI Objective Alert: Yes [place]: Person, Place, Date Mood: Calm Affect: Flat Memory Intact: Comment (impaired recent memory regarding recent hospitalization.) Hallucinations: Auditory Delusions: No Delusion Type: Other (none) Suicidal: Ideation (denies) Homicidal: Ideation (denies) Insight/Judgment poor Vitals/IOs Vital Signs Date Time Temp Pulse Resp B/P Pulse Ox O2 Delivery O2 Flow Rate FiO2 11/24/16 18:28 97.1 92 17 110/71 98 Assessment & Plan Problem List: (1) Schizophrenia ICD Code: F20.9 Assessment & Plan Continue current tx plan. pt improving. Estimated LOS: days Justification for Cont. Inpt. continued impairment in reality testing. Erma Amin MD Nov 24, 2016 22:10
[2016-11-25 06:22] VITALS: BP 109/62; PULSE 75; RESP 18; TEMP 97.6; O2SAT 100
[2016-11-25] MEDS: THIAMINE HCL 100 MG TAB PO SCH (08:46)
[2016-11-25] MEDS: risperiDONE 3 MG TAB PO SCH ×2 (08:46→22:14)
[2016-11-25] MEDS: MULTIVITAMIN TAB PO SCH (08:46)
[2016-11-25] MEDS: BENZTROPINE MESYLATE 1 MG TAB PO SCH ×2 (08:46→22:14)
[2016-11-25] MEDS: MEGESTROL ACETATE SUSP 400 MG/10 ML CUP PO SCH (08:46)
[2016-11-25] MEDS: PRAVASTATIN SOD 40 MG TAB PO SCH (08:46)
[2016-11-25] MEDS: CALCIPOTRIENE 0.005% TOPICAL SCH (08:51)
[2016-11-25] MEDS: NICOTINE 21 MG/24 HR PATCH T-DERMAL SCH (09:00)
[2016-11-25] MEDS: REMOVE OLD PATCH T-DERMAL SCH (09:00)
[2016-11-25] MEDS ORDERED: diphenhydrAMINE HCL 25 MG CAP PO PRN (12:15)
[2016-11-25] MEDS: CALCIPOTRIENE 0.005% CREAM 60 GM TOPICAL SCH ×2 (13:00→22:15)
--- NOTE | 2016-11-25 15:03 | HHI.PYPN ---
Subjective Remarks Pt seen and discussed with staff. He has been withdrawn with poor engagement today. He denies hallucinations today and reports that mood is a little better. Staff report appetite is improving. No SI/HI. Objective Alert: Yes [place]: Person, Place, Date Mood: Calm Affect: Flat Memory Intact: Comment (impaired recent memory regarding recent hospitalization.) Hallucinations: Other (denies) Delusions: No Delusion Type: Other (none) Suicidal: Ideation (denies) Homicidal: Ideation (denies) Insight/Judgment limited Vitals/IOs Vital Signs Date Time Temp Pulse Resp B/P Pulse Ox O2 Delivery O2 Flow Rate FiO2 11/25/16 06:22 97.6 75 18 109/62 100 Assessment & Plan Problem List: (1) Schizophrenia ICD Code: F20.9 Assessment & Plan Pt improving. Continue current tx plan. Estimated LOS: days Justification for Cont. Inpt. risk of decompensaton Erma Amin MD Nov 25, 2016 15:03
[2016-11-25 18:25] VITALS: BP 104/64; PULSE 90; RESP 16; TEMP 99.1; O2SAT 99
[2016-11-26 06:00] VITALS: BP 105/67; PULSE 81; RESP 18; TEMP 98.4; O2SAT 98
[2016-11-26] MEDS: PRAVASTATIN SOD 40 MG TAB PO SCH (08:57)
[2016-11-26] MEDS: BENZTROPINE MESYLATE 1 MG TAB PO SCH ×2 (08:57→20:53)
[2016-11-26] MEDS: MULTIVITAMIN TAB PO SCH (08:57)
[2016-11-26] MEDS: THIAMINE HCL 100 MG TAB PO SCH (08:57)
[2016-11-26] MEDS: MEGESTROL ACETATE SUSP 400 MG/10 ML CUP PO SCH (08:57)
[2016-11-26] MEDS: risperiDONE 3 MG TAB PO SCH ×2 (08:57→20:53)
[2016-11-26] MEDS: CALCIPOTRIENE 0.005% CREAM 60 GM TOPICAL SCH ×2 (08:58→20:54)
[2016-11-26] MEDS: NICOTINE 21 MG/24 HR PATCH T-DERMAL SCH ×2 (08:58→09:00)
[2016-11-26] MEDS: REMOVE OLD PATCH T-DERMAL SCH (09:00)
--- NOTE | 2016-11-26 15:42 | HHI.PYPN ---
Subjective Remarks Patient follow, chart review. As per nursing report patient had been medication compliant, continues to be isolative room, appears to be preoccupied at times and has slept well. Patient found lying in hospital bed under, and was able to wake up and participate in interview. Patient noted to be more interactive with interview today. He states that his mood as being "all right" , endorsing auditory hallucinations, of 2 voices, noncommand, frequency is "sometimes" last minutes and states that he is able to ignore them and that they do not bother him. Patient reports last episode of auditory hallucination was yesterday. He mentions that he spoke with his daughter yesterday she had called to see how he was doing. He reports that she will be coming in tomorrow to visit him and at that time team will meet with her to discuss discharge planning. Patient at this time denies any SI, HI, AVH or delusions at time of interview. Patient encouraged to continue to participate in groups and activities which he acknowledged. Review of Systems Except as stated in HPI: all other systems reviewed are Neg Objective Alert: Yes [place]: Person, Place, Date Mood: Calm Affect: Other (more reactive today) Memory Intact: Comment (impaired recent memory regarding recent hospitalization.) Hallucinations: Auditory (endorses auditory hallucinations as stated in history of present illness but denies at time of interview.) Delusions: No Delusion Type: Other (none) Suicidal: Ideation (denies) Homicidal: Ideation (denies) Insight/Judgment Limited insight, fair impulse control, and judgment Remarks Patient found lying in hospital bed appears stated age, in hospital pajamas, calm and cooperative in interview. Fair grooming and hygiene. Thought process linear. Thought content denies SI, HI, VH or delusions but endorses auditory hallucinations. Vitals/IOs Vital Signs Date Time Temp Pulse Resp B/P Pulse Ox O2 Delivery O2 Flow Rate FiO2 11/26/16 06:00 98.4 81 18 105/67 98 Intake and Output 11/25/16 11/25/16 11/25/16 07:59 15:59 23:59 Intake Total 240 ml Balance 240 ml Assessment & Plan Problem List: (1) Schizophrenia ICD Code: F20.9 Assessment & Plan Patient this time noted to be more reactive, more engaging in interview. Patient continues to endorse auditory hallucinations but states being able to ignore them. Patient is isolative in room, unclear whether Hungarian being his second language is a factor it to patient's be reluctant to participate in groups but was encouraged to continue to participate in groups and activities. Patient to continue current treatment, we'll present option of patient being on long-acting injectable (Risperdal Consta) prior to discharge to improve compliance. Will meet with daughter tomorrow to discuss discharge planning. Continue to monitor for medication response adverse drug reactions, continue to encourage maintenance personal hygiene and participation in activities. Discharge planning in progress. Justification for Cont. Inpt. Patient at risk for further decompensation if a lower level of care Discharge Planning In progress Mat Beth MD Nov 26, 2016 15:42
[2016-11-26 18:16] VITALS: BP 138/79; PULSE 95; RESP 18; TEMP 98.7; O2SAT 100
[2016-11-27 05:18] VITALS: BP 103/70; PULSE 75; RESP 16; TEMP 97.8; O2SAT 97
[2016-11-27] MEDS: THIAMINE HCL 100 MG TAB PO SCH (09:00)
[2016-11-27] MEDS: MEGESTROL ACETATE SUSP 400 MG/10 ML CUP PO SCH (09:00)
[2016-11-27] MEDS: MULTIVITAMIN TAB PO SCH (09:00)
[2016-11-27] MEDS: REMOVE OLD PATCH T-DERMAL SCH (09:00)
[2016-11-27] MEDS: BENZTROPINE MESYLATE 1 MG TAB PO SCH ×2 (09:00→20:37)
[2016-11-27] MEDS: PRAVASTATIN SOD 40 MG TAB PO SCH (09:00)
[2016-11-27] MEDS: NICOTINE 21 MG/24 HR PATCH T-DERMAL SCH (09:00)
[2016-11-27] MEDS: risperiDONE 3 MG TAB PO SCH ×2 (09:00→20:37)
[2016-11-27 15:15] VITALS: BP 107/63; PULSE 94; RESP 18; TEMP 99.5; O2SAT 99
--- NOTE | 2016-11-27 17:32 | HHI.PYPN ---
Subjective Remarks Patient seen for follow-up, chart review. After discussion with nursing staff, patient continued to do noted to be seclusive at times but comes out for meals. Patient found lying in hospital bed but able to engage in interview. Patient states that he wants to go home, continues to report auditory hallucinations but last time being yesterday which lasted "minutes. States feeling all right and denies feeling depressed, with manic or other psychotic symptoms aside from auditory hallucinations. Patient states that he spoke with his daughter over the phone was expected to be visited by her today. Patient states that he plans to go home and continue his outpatient follow-up after discharge. Review of Systems Except as stated in HPI: all other systems reviewed are Neg Objective Alert: Yes [place]: Person, Place, Date Mood: Calm Affect: Other (more reactive today) Memory Intact: Comment (impaired recent memory regarding recent hospitalization.) Hallucinations: Auditory (endorses auditory hallucinations as stated in history of present illness but denies at time of interview.) Delusions: No Delusion Type: Other (none) Suicidal: Ideation (denies) Homicidal: Ideation (denies) Insight/Judgment Limited site, fair impulse control and judgment Vitals/IOs Vital Signs Date Time Temp Pulse Resp B/P Pulse Ox O2 Delivery O2 Flow Rate FiO2 11/27/16 15:15 99.5 94 18 107/63 99 Assessment & Plan Problem List: (1) Schizophrenia ICD Code: F20.9 Assessment & Plan Patient endorsing minimal perceptual disturbances such as auditory hallucinations but is able to manage them as they are brief. Patient denies any other psychotic symptoms. Patient with stable mood at this time, and motivated to continue outpatient treatment upon discharge. Team is had difficulty locating patient's daughter as we have no contact number and had expected her to visit the patient this afternoon but did not show up. Patient likely be discharged tomorrow with outpatient follow-up. Justification for Cont. Inpt. Patient risk for decompensation if a lower level of care. Discharge Planning In progress Mat Beth MD Nov 27, 2016 17:32
[2016-11-27] MEDS: CALCIPOTRIENE 0.005% CREAM 60 GM TOPICAL SCH (20:38)
[2016-11-28 05:09] VITALS: BP 120/65; PULSE 92; RESP 14; TEMP 98.6; O2SAT 97
[2016-11-28] MEDS: REMOVE OLD PATCH T-DERMAL SCH (09:00)
[2016-11-28] MEDS: NICOTINE 21 MG/24 HR PATCH T-DERMAL SCH (09:00)
[2016-11-28] MEDS: THIAMINE HCL 100 MG TAB PO SCH (09:00)
[2016-11-28] MEDS: CALCIPOTRIENE 0.005% CREAM 60 GM TOPICAL SCH ×2 (09:00→21:00)
[2016-11-28] MEDS: risperiDONE 3 MG TAB PO SCH ×2 (09:00→20:41)
[2016-11-28] MEDS: MULTIVITAMIN TAB PO SCH (09:00)
[2016-11-28] MEDS: PRAVASTATIN SOD 40 MG TAB PO SCH (09:00)
[2016-11-28] MEDS: MEGESTROL ACETATE SUSP 400 MG/10 ML CUP PO SCH (09:00)
[2016-11-28] MEDS: BENZTROPINE MESYLATE 1 MG TAB PO SCH ×2 (09:00→20:41)
--- NOTE | 2016-11-28 14:02 | HHI.PYPN ---
Subjective Remarks Patient seen for follow-up, chart reviewed. After discussion with nursing staff patient noted to be more sociable, more interactive. Patient found lying in hospital bed, cooperative interview. Patient stated feeling "alright". She mentions that he does not meet with his daughter yesterday she does not calm. Patient states feeling safe going home but does not have acute again to his home at this time. She states that the other person that may have access to his home is his shoe caser Iraida at [facility]. Patient states feeling well on current medication regimen, denying any significant auditory hallucinations even though he does have small episodes which he is able to ignore them. Patient denies any other perceptual disturbances by any SI or HI or delusions. Patient states that upon discharge he plans to return home and continue outpatient follow-up. Review of Systems Except as stated in HPI: all other systems reviewed are Neg Objective Alert: Yes [place]: Person, Place, Date Mood: Calm Affect: Other (more reactive today) Memory Intact: Comment (impaired recent memory regarding recent hospitalization.) Hallucinations: Auditory (endorses auditory hallucinations as stated in history of present illness but denies at time of interview.) Delusions: No Delusion Type: Other (none) Suicidal: Ideation (denies) Homicidal: Ideation (denies) Insight/Judgment Limited insight, fair impulse control and judgment Vitals/IOs Vital Signs Date Time Temp Pulse Resp B/P Pulse Ox O2 Delivery O2 Flow Rate FiO2 11/28/16 05:09 98.6 92 14 120/65 97 Assessment & Plan Problem List: (1) Schizophrenia ICD Code: F20.9 Assessment & Plan Patient at this time responding well to current treatment, denies minimal auditory hallucinations which she states she can ignore. Patient now more reactive, more social and more engaging with others on the unit. Patient at this time denies any acute psychotic symptom and will require further psychiatric stabilization. Patient likely for discharge tomorrow after team has arranged patient to be able to return to his home with his shoe caser Iraida at [facility]. At this time does not have access into his home due to circumcise which brought him here initially. Patient to continue current treatment regimen. Supportive psychotherapy provided. Discharge planning in process. Justification for Cont. Inpt. Patient at risk for decompensation if it lower level of care Discharge Planning In progress Mat Beth MD Nov 28, 2016 14:02
[2016-11-29 05:26] VITALS: BP 102/65; PULSE 81; RESP 16; TEMP 97.6; O2SAT 98
[2016-11-29] MEDS: MULTIVITAMIN TAB PO SCH (08:33)
[2016-11-29] MEDS: BENZTROPINE MESYLATE 1 MG TAB PO SCH (08:33)
[2016-11-29] MEDS: MEGESTROL ACETATE SUSP 400 MG/10 ML CUP PO SCH (08:33)
[2016-11-29] MEDS: THIAMINE HCL 100 MG TAB PO SCH (08:34)
[2016-11-29] MEDS: PRAVASTATIN SOD 40 MG TAB PO SCH (08:34)
[2016-11-29] MEDS: risperiDONE 3 MG TAB PO SCH (08:34)
[2016-11-29] MEDS: NICOTINE 21 MG/24 HR PATCH T-DERMAL SCH (08:37)
[2016-11-29] MEDS: REMOVE OLD PATCH T-DERMAL SCH (08:37)
[2016-11-29] MEDS: CALCIPOTRIENE 0.005% CREAM 60 GM TOPICAL SCH (08:37)
[2016-11-29] MEDS ORDERED: PRAV40TA PO (12:15)
[2016-11-29] MEDS ORDERED: Benztropine PO (12:15)
[2016-11-29] MEDS ORDERED: RISP3 PO (12:15)
[2016-11-29] MEDS ORDERED: GNP100TA3 PO (12:15)
[2016-11-29] MEDS ORDERED: CALC.005%T TOPICAL (12:15)
[2016-11-29] MEDS ORDERED: MEGE40SU PO (12:15)
[2016-11-29] MEDS ORDERED: THERTAB15 PO (12:15)
--- NOTE | 2016-11-29 19:57 | HHI.DS ---
Psychiatry Discharge Summary Inpatient Psychiatric care?: Yes Advance Directive: No Mental Health AdvanceDirective: No Health Care Proxy: No Admission Admission Date Nov 20, 2016 at 18:00 Admission Diagnosis: (1) Schizophrenia ICD Code: F20.9 Brief History Patient is a 56-year-old Dominican man, with 4 children, domiciled, employed, with past psychiatric history of schizophrenia, no prior psychiatric admissions or suicide attempts, follows up at [facility] with Chemo Donohue, case sealer named Iraida, recently on Risperdal 3 mg twice a day and Cogentin 1 mg twice a day who was brought in by EMS on 11/16/16 for altered mental status and upon medical workup was found to be septic, encephalopathic hypokalemic which was medically managed and on during this admission a psychiatric consult was placed for altered mental status and was found to have predominantly negative symptoms and upon follow-up patient was noted to be very disorganized tangential inappropriate laughing intermittently stimulated which should was later transferred the inpatient psychiatry unit on 11/20/16 for further evaluation and treatment. Patient was seen on the inpatient unit found lying in hospital bed asleep and was superficially cooperative as patient had somewhat difficulty staying awake for interview. Patient found to be oriented to person and place only stating feeling a little better as well as mentioning that he has not eating better than before. Patient denies any mood symptoms denies any psychotic symptoms at this time. Patient is a poor historian and an unclear whether due to sedative properties of current treatments is contrary to his current state or whether it s due to current psychosis. Patient unable to recall past psychiatric or medical history at this time continues to appear confused and will require further observation and stabilization on the inpatient unit. Past psychiatric history: As per chart previous psychiatric diagnoses schizophrenia, no previous psychiatric hospitalizations, no previous suicide attempts or self-injurious behavior. Follows up at [facility] with Chemo Donohue, case sealer named Iraida, recently on Risperdal 3 mg twice a day and Cogentin 1 mg twice a day. Substance use history: Tobacco use half a pack per day, denies any alcohol or any illegal substance use Past medical history Allergies: NKDA Social history: Domiciled in [facility] recently from [place], came to the [place] at the age of 20, employed in a [employer] shop, has a daughter named Ramona in [place]. Labs reviewed. Tobacco Use In Past 30 Days: No Tobacco Past 30 Days Alcohol Use: Monthly or Less Hospital Course Patient is a 56-year-old [place] man, with 4 children, domiciled, employed, with past psychiatric history of schizophrenia, no prior psychiatric admissions or suicide attempts, follows up at [facility] with Chemo Donohue, case sealer named Iraida, recently on Risperdal 3 mg twice a day and Cogentin 1 mg twice a day who was brought in by EMS on 11/16/16 for altered mental status and upon medical workup was found to be septic, encephalopathic hypokalemic which was medically managed and on during this admission a psychiatric consult was placed for altered mental status and was found to have predominantly negative symptoms and upon follow-up patient was noted to be very disorganized tangential inappropriate laughing intermittently stimulated which should was later transferred the inpatient psychiatry unit on 11/20/16 for further evaluation and treatment. Patient upon admission to the inpatient psychiatry unit was noted to be confused , endorsing perceptual disturbances such as auditory hallucinations, and started to be sedated has secondary side effects from medications. Patient on the unit had limited interaction with staff, was isolative and did not participate in groups and activities initially. Patient continued on Risperdal 2 mg by mouth twice a day for psychosis and slowly began to improve as patient became more reactive, endorsing less auditory hallucinations, with more organized thought process, and noted to be engaging more with staff and less isolative while on the unit. Patient continued to improve with minimal auditory hallucinations, with organized thought process, and denied any mood symptoms. Patient upon discharge was noted to be in good spirits, motivated to continue outpatient follow-up along with treatment regimen. Patient has good social support from daughter who is involved in his care. Patient states that he will follow-up with his outpatient provider for continuity of care. Patient advised to continue current treatment regimen, advised to call 911 or go to nearest emergency department in case of emergency. Patient agrees with plan. Patients case sealer aware of discharge and will continue follow up upon discharge. Results Blood Pressure 102 / 65 Vital Signs Date Time Temp Pulse Resp B/P Pulse Ox O2 Delivery O2 Flow Rate FiO2 11/29/16 05:26 97.6 81 16 102/65 98 Labs within normal limits Summary of Procedures None Pending results at discharge: No Medications # of Antipsychotic meds at D/C: 1 Approp Antipsych med options 1 - Minimum of three failed multiple trials of monotherapy. 2 - Documented plan to taper to monotherapy due to previous use of multiple meds OR cross-taper in progress at D/C. 3 - Documentation of augmentation of Clozapine. 4 - Justification other than those listed in allowable values 1-3, document here : Discharge Discharge Date: Nov 29, 2016 Discharge Diagnosis: (1) Schizophrenia Diagnosis: Principal ICD Code: F20.9 Mental Status Exam at Disch Patient appears stated age, in hospital pajamas, calm and cooperative interview , fair hygiene and grooming, fair eye contact, speech normal rate tone and prosody noted with Dominican accent, mood: Good", affect appropriate, thought process linear, goal directed, thought content denies SI, HI, AVH or delusions, insight fair impulse control fair judgment fair, alert and oriented 3 Pt Condition on Discharge: Fair Discharge Disposition: Discharge Home Discharge Instructions Diet Instructions: Heart Healthy Diet Activities you can perform: Regular-No Restrictions Scheduled Appointment: Jean Vicente Appointment Date: Nov 30, 2016 Discharge Time > 30 minutes Discharge/Advance Care Plan Health Problems: (1) Schizophrenia Goals to promote your health * To prevent worsening of your condition and complications * To maintain your health at the optimal level Directions to meet your goals Take your medications as prescribed Follow your dietary instruction Follow activity as directed Keep your appointments as scheduled Take your immunizations and boosters as scheduled If your symptoms worsen call your PCP, if no PCP go to Urgent Care Center or Emergency Room For 05/11 questions related to your inpatient stay or results of tests pending at discharge, please contact Dr. Mat Beth at Smoking is Dangerous to Your Health. Avoid second hand smoking Mat Beth MD Nov 29, 2016 19:56
== END 2016-11-29 14:15 | disposition home or self-care (01) | DRG 885 ==
LOC: H260 18:00
PROVIDERS: ADMIT Student in an Organized Health Care Education/Training Program; ATTEND Student in an Organized Health Care Education/Training Program
DX: F20.9 Schizophrenia, unspecified (principal); F17.210 Nicotine dependence, cigarettes, uncomplicated; L40.9 Psoriasis, unspecified; R21 Rash and other nonspecific skin eruption
CPT/HCPCS: 80048; 80061; 83036; Q0163

== ENCOUNTER 2017-01-25 15:17 | Inpatient (IN) | payer OTHER ==
[~2017-01-25] VITALS: Ht 162.6 cm; Wt 44.9 kg
[~2017-01-25 15:17] MED LIST changes: +Benztropine PO; +CALC.005%T TOPICAL; +MEGE40SU PO; +PRAV40TA PO; +RISP3 PO; -SIMV20TA PO; +THERTAB15 PO
[2017-01-25 15:26] VITALS: BP 144/90; PULSE 136; RESP 18; TEMP 99.1; O2SAT 99
[2017-01-25 16:34] VITALS: PULSE 106; O2SAT 99
[2017-01-25 16:54] VITALS: BP 141/87; PULSE 99; RESP 15; O2SAT 98
[2017-01-25 17:22] LABS: AUTOMATED NEUTROPHIL # 6.7 TH/MM3 (1.8-7.7); BASOPHIL # 0.1 TH/MM3 (0-0.2); EOSINOPHIL # 0.2 TH/MM3 (0-0.4); EOSINOPHIL % 1.9 % (0.0-4.0); HEMATOCRIT 43.4 % (39.0-51.0); HEMO FLAGS DIFF FINAL; LYMPH % 16.8 % (9.0-44.0); LYMPHOCYTE # 1.5 TH/MM3 (1.0-4.8); MEAN CELL VOLUME 105.6 FL (80.0-100.0); MEAN CORPUSCULAR HEMOGLOBIN 35.7 PG (27.0-34.0); MEAN CORPUSCULAR HGB CONC 33.8 % (32.0-36.0); MONO % 5.2 % (0.0-8.0); NEUT % 75.1 % (16.0-70.0); PLATELET COUNT 270 TH/MM3 (150-450); RED BLOOD COUNT 4.11 MIL/MM3 (4.50-5.90); RED CELL DISTRIBUTION WIDTH 14.8 % (11.6-17.2)
[2017-01-25 17:42] LABS: ALT (GPT) 18 U/L (12-78); ANION GAP 6 MEQ/L (5-15); AST (GOT) 17 U/L (15-37); BICARBONATE 28.3 MEQ/L (21.0-32.0); BLOOD UREA NITROGEN 5 MG/DL (7-18); CHLORIDE 104 MEQ/L (98-107); GLOMERULAR FILTRATION RATE 71 ML/MIN (>89); POTASSIUM 3.8 MEQ/L (3.5-5.1); SODIUM (NA) 138 MEQ/L (136-145)
[2017-01-25 17:44] LABS: ALKALINE PHOSPHATASE 106 U/L (45-117); TOTAL BILIRUBIN ADULT 0.4 MG/DL (0.2-1.0)
[2017-01-25 17:46] LABS: ALCOHOL LESS THAN 3 MG/DL (0-5)
--- NOTE | 2017-01-25 18:13 | PD ---
HPI . Schizophrenia Chief Complaint: Psychiatric Symptoms Time Seen by Provider: 17:00 Travel History International Travel<30 days: No Contact w/Intl Traveler<30days: No Traveled to known affect area: No History of Present Illness HPI This patient presents to us via law enforcement as an Ex Parte because of noncompliance with schizophrenic medications. His manufacturing chief engineer is concerned about his personal well-being. The patient himself is unable to give any meaningful history. He does admit that he has not taken any medications in quite some time. He is able to tell me his name. He is unable to answer any of the rest of orientation type questions. He denies any physical complaints. PFSH Past Medical History Arthritis: Yes Autoimmune Disease: No Bipolar Disorder: Yes Cancer: No Cardiovascular Problems: No Endocrine: No Genitourinary: No Immune Disorder: No Musculoskeletal: Yes Neurologic: No Psychiatric: No Reproductive: No Respiratory: No Integumentary: Yes (PSORIASIS) Schizophrenia: Yes Tetanus Vaccination: Unknown Influenza Vaccination: No Past Surgical History Surgical History: No Previous Surgery Social History Alcohol Use: No Tobacco Use: Yes (<1PPD) Substance Use: No Allergies-Medications (Allergen,Severity, Reaction): Coded Allergies: No Known Allergies (Unverified , 01/25/17) Reported Meds & Prescriptions Reported Meds & Active Scripts Active No Active Prescriptions or Reported Medications Review of Systems Except as stated in HPI: all other systems reviewed are Neg Physical Exam Narrative GENERAL: This is a slightly built man who is lying on the stretcher in no distress. SKIN: Warm and dry with no rash or lesions. HEAD: Normocephalic/atraumatic. EYES: Pupils are equal. Extraocular movements are intact. NECK: Neck is supple with full range of motion. CARDIOVASCULAR: Regular rate and rhythm. RESPIRATORY: Nonlabored respirations. MUSCULOSKELETAL: Atraumatic. NEUROLOGICAL: Awake and alert. Cranial nerves II through XII are grossly intact. He is moving all 4 extremities equally. Speech is normal. PSYCHIATRIC: The patient is awake and alert but oriented only to self. He has been calm and cooperative. No obvious psychotic features. Data Data Last Documented VS Vital Signs Date Time Temp Pulse Resp B/P (MAP) Pulse Ox O2 Delivery O2 Flow Rate FiO2 01/25/17 16:54 99 15 141/87 (105) 98 Room Air 01/25/17 15:26 99.1 Orders Orders Complete Blood Count With Diff (01/25/17 17:00) Comprehensive Metabolic Panel (01/25/17 17:00) Psych Screen (01/25/17 17:00) Drug Screen, Random Urine (01/25/17 17:00) Alcohol (Ethanol) (01/25/17 17:00) Labs Laboratory Tests Test 01/25/17 17:05 White Blood Count 9.0 TH/MM3 Red Blood Count 4.11 MIL/MM3 Hemoglobin 14.7 GM/DL Hematocrit 43.4 % Mean Corpuscular Volume 105.6 FL Mean Corpuscular Hemoglobin 35.7 PG Mean Corpuscular Hemoglobin Concent 33.8 % Red Cell Distribution Width 14.8 % Platelet Count 270 TH/MM3 Mean Platelet Volume 7.0 FL Neutrophils (%) (Auto) 75.1 % Lymphocytes (%) (Auto) 16.8 % Monocytes (%) (Auto) 5.2 % Eosinophils (%) (Auto) 1.9 % Basophils (%) (Auto) 1.0 % Neutrophils # (Auto) 6.7 TH/MM3 Lymphocytes # (Auto) 1.5 TH/MM3 Monocytes # (Auto) 0.5 TH/MM3 Eosinophils # (Auto) 0.2 TH/MM3 Basophils # (Auto) 0.1 TH/MM3 CBC Comment DIFF FINAL Differential Comment Blood Urea Nitrogen 5 MG/DL Creatinine 1.07 MG/DL Random Glucose 92 MG/DL Total Protein 8.2 GM/DL Albumin 3.9 GM/DL Calcium Level 8.8 MG/DL Alkaline Phosphatase 106 U/L Aspartate Amino Transf (AST/SGOT) 17 U/L Alanine Aminotransferase (ALT/SGPT) 18 U/L Total Bilirubin 0.4 MG/DL Sodium Level 138 MEQ/L Potassium Level 3.8 MEQ/L Chloride Level 104 MEQ/L Carbon Dioxide Level 28.3 MEQ/L Anion Gap 6 MEQ/L Estimat Glomerular Filtration Rate 71 ML/MIN Urine Opiates Screen NEG Urine Barbiturates Screen NEG Urine Amphetamines Screen NEG Urine Benzodiazepines Screen NEG Urine Cocaine Screen NEG Urine Cannabinoids Screen NEG Ethyl Alcohol Level LESS THAN 3 MG/DL MDM Medical Decision Making Medical Screen Exam Complete: Yes Emergency Medical Condition: Yes Differential Diagnosis Differential diagnosis of psychosis includes but is not limited to schizophrenia , schizoaffective disorder, bipolar disorder, intoxication, substance abuse, dementia Narrative Course This patient presents [place] Parte for failure to take his psychiatric medication. CBC & BMP Diagram 01/25/17 17:05 Total Protein 8.2, Albumin 3.9, Calcium Level 8.8, Alkaline Phosphatase 106, Aspartate Amino Transf (AST/SGOT) 17, Alanine Aminotransferase (ALT/SGPT) 18, Total Bilirubin 0.4 Urine drug screen and alcohol level are negative. This patient is medically clear for psychiatric evaluation. Diagnosis Primary Impression: Medical clearance for psychiatric admission Scripts No Active Prescriptions or Reported Meds Condition: Stable Day [place] MD Jan 25, 2017 18:13
[2017-01-25 18:38] VITALS: BP 137/84; PULSE 102; RESP 14; O2SAT 98
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
[2017-01-25] MEDS ORDERED: MAGNESIUM HYDROXIDE SUSP 30 ML CUP PO PRN (20:00)
[2017-01-25] MEDS ORDERED: ALUMINUM/MAGNESIUM/SIMETH 30 ML CUP PO PRN (20:00)
[2017-01-25] MEDS ORDERED: ACETAMINOPHEN 325 MG TAB PO PRN (20:00)
[2017-01-25 22:15] VITALS: BP 134/90; PULSE 110; RESP 17; TEMP 97.9; O2SAT 99
[2017-01-26 06:05] VITALS: BP 143/79; PULSE 102; RESP 17; TEMP 98.1; O2SAT 99
[2017-01-26 08:20] LABS: ANION GAP 9 MEQ/L (5-15); BICARBONATE 26.3 MEQ/L (21.0-32.0); BLOOD UREA NITROGEN 7 MG/DL (7-18); CHLORIDE 107 MEQ/L (98-107); GLOMERULAR FILTRATION RATE 74 ML/MIN (>89); SODIUM (NA) 142 MEQ/L (136-145)
[2017-01-26 08:24] LABS: HDL CHOLESTEROL 56.2 MG/DL (40.0-60.0); LDL CHOLESTEROL 74 MG/DL (0-99)
[2017-01-26 12:47] LABS: HEMOGLOBIN A1a 1.6 %; HEMOGLOBIN A1b 0.9 %; HEMOGLOBIN F 1.8 %; HEMOGLOBIN LA1C 2.6 %; HEMOGLOBIN P3 5.3 %
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
--- NOTE | 2017-01-26 14:31 | EKG ---
Date Performed: 01/26/2017 Time Performed: 13:22:41 PTAGE: 56 years EKG: SINUS TACHYCARDIA No significant change from prior electrocardiogram. PREVIOUS TRACING : 11/16/2016 18.16 DOCTOR: Alex Rivera Interpretating Date/Time 01/26/2017 14:30:30
[2017-01-26 17:46] VITALS: BP 126/75; PULSE 95; RESP 17; TEMP 98.4; O2SAT 98
[2017-01-26] MEDS: risperiDONE 1 MG TAB PO SCH (21:13)
[2017-01-27 05:42] VITALS: BP 134/88; PULSE 79; RESP 16; TEMP 97.9; O2SAT 97
[2017-01-27] MEDS: risperiDONE 1 MG TAB PO SCH ×2 (08:48→20:19)
--- NOTE | 2017-01-27 12:27 | HHI.PYPN ---
Subjective Remarks This is a request for second opinion. Admission note was reviewed and I agree with the contents. Case was discussed with nursing, and patient was evaluated. Patient interviewed in bed, he is disheveled, minimally interactive with psychomotor retardation. Slow soft speech, hporverbal. Patient has poor insight and denies a mental illness. He is compliant with his medications. Minimizes his behavior before admission Mental Status Examination Appearance: Appropriate Consciousness: Alert Orientation: Person, Place, Date/Time, Situation (states doesn't know why he is here) Motor Activity: Other (diminished) Speech: Hesitant, Slow Language: Adequate Fund of Knowledge: Adequate (unable to assess) Attention and Concentration: Other (decrease attention) Memory: Unremarkable (unable to assess) Mood: Other (appears withdrawn) Affect: Blunt Thought Process & Associations: Other (difficult to assess) Thought Content: Other Hallucination Type: None (denies) Delusion Type: None Suicidal Ideation: No Suicidal Plan: No Suicidal Intention: No Homicidal Ideation: No Homicidal Plan: No Homicidal Intention: No Insight: Poor Judgment: Poor Results Vitals/IOs Vital Signs Date Time Temp Pulse Resp B/P (MAP) Pulse Ox O2 Delivery O2 Flow Rate FiO2 01/27/17 05:42 97.9 79 16 134/88 (103) 97 01/25/17 18:38 Room Air Assessment & Plan Problem List: (1) Schizophrenia ICD Codes: F20.9 - Schizophrenia, unspecified Status: Acute Assessment & Plan I agree with the first opinion to continue petition. Criteria include acute psychosis Justification for Cont. Inpt. Patient will decompensate in a less restrictive setting Problem Qualifiers (1) Schizophrenia: Qualified Codes: F20.9 - Schizophrenia, unspecified Luis Kothari DO Jan 27, 2017 12:27
[2017-01-27 16:55] VITALS: BP 132/68; PULSE 88; RESP 18; TEMP 98.3; O2SAT 98
[2017-01-28 06:09] VITALS: BP 114/67; PULSE 90; RESP 16; TEMP 98.6; O2SAT 98
[2017-01-28] MEDS: risperiDONE 1 MG TAB PO SCH ×2 (08:26→20:42)
--- NOTE | 2017-01-28 16:33 | HHI.PYPN ---
Subjective Remarks Patient was seen today for psychiatric reevaluation, patient was found in his bed, at the beginning refusing to cooperate, very oppositional and irritable. However, he was sensitive to redirection. Patient reports eating okay, he denies depression, he reports good appetite, good sleep, good level of concentration. He denies hearing voices, denies visual hallucinations. He denies suicidal and homicidal ideation. He has been compliant with medications, and medical side effects. No agitation, no violence or aggressive behavior reported. He is oriented 3. Mental Status Examination Appearance: Appropriate Consciousness: Alert Orientation: Person, Place, Date/Time, Situation (states doesn't know why he is here) Motor Activity: Other (diminished) Speech: Hesitant, Slow Language: Adequate Fund of Knowledge: Adequate (unable to assess) Attention and Concentration: Other (decrease attention) Memory: Unremarkable (unable to assess) Mood: Other (appears withdrawn) Affect: Blunt Thought Process & Associations: Other (difficult to assess) Thought Content: Other Hallucination Type: None (denies) Delusion Type: None Suicidal Ideation: No Suicidal Plan: No Suicidal Intention: No Homicidal Ideation: No Homicidal Plan: No Homicidal Intention: No Insight: Poor Judgment: Poor Results Vitals/IOs Vital Signs Date Time Temp Pulse Resp B/P (MAP) Pulse Ox O2 Delivery O2 Flow Rate FiO2 01/28/17 06:09 98.6 90 16 114/67 (83) 98 01/25/17 18:38 Room Air Assessment & Plan Problem List: (1) Schizophrenia ICD Codes: F20.9 - Schizophrenia, unspecified Status: Acute Assessment & Plan: We will increase the Risperdal to 2 mg twice a day for psychosis. Assessment & Plan Estimated LOS: days Justification for Cont. Inpt. Patient has an elevated risk to decompensate at a lower level of care. Problem Qualifiers (1) Schizophrenia: Qualified Codes: F20.9 - Schizophrenia, unspecified José Manuel Esparza MD Jan 28, 2017 16:33
[2017-01-28 17:37] VITALS: BP 124/71; PULSE 79; RESP 18; TEMP 98.1; O2SAT 98
[2017-01-29 06:02] VITALS: BP 124/65; PULSE 78; RESP 17; TEMP 97.8; O2SAT 98
[2017-01-29] MEDS: risperiDONE 1 MG TAB PO SCH (09:14)
--- NOTE | 2017-01-29 14:12 | HHI.PYPN ---
Subjective Remarks Patient was seen today for psychiatric reevaluation, patient is found in his room, laying down his bed covered with blankets, however he is easily arousable. Reports that he feels okay, denies depression, denies suicidal and homicidal ideation, denies visual and auditory hallucinations. Patient does not seem to be prominently paranoid or psychotic, however he has been isolated in his room, barely living his room, reportedly internally preoccupied. No agitation, aggressive behavior reported. Compliant with medications,and medical side effects. Review of Systems Except as stated in HPI: all other systems reviewed are Neg Mental Status Examination Appearance: Appropriate Consciousness: Alert Orientation: Person, Place, Date/Time, Situation (states doesn't know why he is here) Motor Activity: Other (diminished) Speech: Hesitant, Slow Language: Adequate Fund of Knowledge: Adequate (unable to assess) Attention and Concentration: Other (decrease attention) Memory: Unremarkable (unable to assess) Mood: Other (appears withdrawn) Affect: Blunt Thought Process & Associations: Other (difficult to assess) Thought Content: Other Hallucination Type: None (denies) Delusion Type: None Suicidal Ideation: No Suicidal Plan: No Suicidal Intention: No Homicidal Ideation: No Homicidal Plan: No Homicidal Intention: No Insight: Poor Judgment: Poor Results Vitals/IOs Vital Signs Date Time Temp Pulse Resp B/P (MAP) Pulse Ox O2 Delivery O2 Flow Rate FiO2 01/29/17 06:02 97.8 78 17 124/65 (84) 98 01/25/17 18:38 Room Air Assessment & Plan Problem List: (1) Schizophrenia ICD Codes: F20.9 - Schizophrenia, unspecified Status: Acute Assessment & Plan: We will increase Risperdal to 3 mg twice a day for psychosis. Assessment & Plan Estimated LOS: days Justification for Cont. Inpt. Patient is acutely psychotic, he needs to continue his hospitalization for stabilization and safety. Problem Qualifiers (1) Schizophrenia: Qualified Codes: F20.9 - Schizophrenia, unspecified José Manuel Esparza MD Jan 29, 2017 14:12
[2017-01-29 18:17] VITALS: BP 126/70; PULSE 76; RESP 16; TEMP 98.1; O2SAT 99
[2017-01-29] MEDS: risperiDONE 3 MG TAB PO SCH (20:34)
[2017-01-30 06:18] VITALS: BP 109/72; PULSE 95; RESP 18; TEMP 97.9; O2SAT 97
[2017-01-30] MEDS: risperiDONE 3 MG TAB PO SCH (07:59)
[2017-01-30] MEDS ORDERED: RISP3 PO (13:01)
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
== END 2017-01-30 17:12 | disposition home or self-care (01) | DRG 885 ==
LOC: NEDAMB 15:17 → NEDA 19:49 → H270 22:09 → H260 01-26 18:25
PROVIDERS: ADMIT Psychiatry & Neurology Psychiatry; ATTEND Psychiatry & Neurology Psychiatry
DX: F20.9 Schizophrenia, unspecified (principal); Z91.14 Patient's other noncompliance with medication regimen
CPT/HCPCS: 80048; 80053; 80061; 80307; 83036; 85025; 93005